=== PATIENT | male | born 1955 | race Two or more races ===

== ENCOUNTER 2017-02-15 15:05 | Observation (INO) | payer OTHER ==
[~2017-02-15] VITALS: Ht 172.7 cm; Wt 108.9 kg
[2017-02-15 15:31] LABS: BASO # 0.1 x10^3/uL (0.0-0.2); BASO % 1 % (0-3); EOS % 3 % (0-3); LYMPH # 2.9 x10^3/uL (1.0-4.8); LYMPH % 31 % (24-48); MEAN CORPUSCULAR HEMOGLOBIN 28 pg (25-35); MEAN CORPUSCULAR HGB CONC 34 g/dL (31-37); MEAN CORPUSCULAR VOLUME 83 fL (79-100); MONO % 7 % (0-9); NEUT % 57 % (31-73); PLATELET COUNT 253 x10^3/uL (140-400); RED BLOOD COUNT 5.67 x10^6/uL (4.30-5.70); RED CELL DISTRIBUTION WIDTH 13.2 % (11.5-14.5); WHITE BLOOD COUNT 9.5 x10^3/uL (4.0-11.0)
--- NOTE | 2017-02-15 15:34 | EKG ---
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
[2017-02-15] MEDS ORDERED: ASPIRIN CHEWABLE 81 MG TABLET. PO ONE (15:45)
--- NOTE | 2017-02-15 15:45 | RAD ---
Portable chest, 02/15/2017: History: Chest pain The heart size and pulmonary vascularity are normal. No pulmonary infiltrates are seen. There is no evidence of pleural fluid. IMPRESSION: No acute cardiopulmonary abnormality is detected.
[2017-02-15 15:52] LABS: CALCIUM 9.2 mg/dL (8.5-10.1); CREATININE 0.8 mg/dL (0.7-1.3); GFR 98.9
[2017-02-15 15:57] LABS: ALBUMIN 2.9 g/dL (3.4-5.0); DIRECT BILIRUBIN 0.2 mg/dL (0.0-0.2); TOTAL BILIRUBIN 0.6 mg/dL (0.2-1.0); TOTAL PROTEIN 7.5 g/dL (6.4-8.2)
--- NOTE | 2017-02-15 16:06 | PHYS DOC ---
Past Medical History Past Medical History: Diabetes-Type II, High Cholesterol Past Surgical History: No Surgical History Alcohol Use: None Drug Use: None Adult General Chief Complaint Chief Complaint: CHEST PAIN HPI HPI 61-year-old male with a history of type 2 diabetes and high cholesterol who presents emergency department today with chest pain. Started around noon. He endorses nausea and shortness of breath associated with it. It radiates to his left jaw. And left arm. He ascribes it is a sharp pain without exacerbating or alleviating factors. He is not taking anything for the pain prior to arrival. He denies unilateral leg swelling hemoptysis personal or family history of blood clotting disorders. He denies recent immobilization or long travel. Review of systems is negative for abdominal pain. Positive for nausea shortness of breath. Negative for diaphoresis. He denies diarrhea or bloody stools. All other review of systems is negative unless otherwise noted in history of present illness. Review of Systems Review of Systems SEE ABOVE. Current Medications Current Medications Current Medications Medications (Trade) Dose Ordered Sig/Porfirio Start Time Stop Time Status Last Admin Dose Admin Aspirin (Children'S Aspirin) 324 mg 1X ONCE 02/15/17 15:45 02/15/17 15:46 DC 02/15/17 15:45 324 MG Allergies Allergies Allergies Coded Allergies Type Severity Reaction Last Updated Verified No Known Drug Allergies 02/15/17 No Physical Exam Physical Exam Constitutional: Well developed, well nourished, no acute distress, non-toxic appearance. HENT: Normocephalic, atraumatic, bilateral external ears normal, oropharynx moist, no oral exudates, nose normal. [] Eyes: PERRLA, EOMI, conjunctiva normal, no discharge. [] Neck: Normal range of motion, no tenderness, supple, no stridor. Cardiovascular:Heart rate regular rhythm, no murmur [] Lungs & Thorax: Bilateral breath sounds clear to auscultation Abdomen: Bowel sounds normal, soft, no tenderness, no masses, no pulsatile masses. [] Skin: Warm, dry, no erythema, no rash. Back: No tenderness, no CVA tenderness. [] Extremities: No tenderness, no cyanosis, no clubbing, ROM intact, no edema. [] Neurologic: Alert and oriented X 3, normal motor function, normal sensory function, no focal deficits noted. Psychologic: Affect normal, judgement normal, mood normal. [] Current Patient Data Vital Signs Vital Signs Date Time Temp Pulse Resp B/P Pulse Ox O2 Delivery O2 Flow Rate FiO2 02/15/17 15:26 98.4 71 14 129/84 99 Room Air 98.4 Lab Values Laboratory Tests Test 02/15/17 15:16 02/15/17 15:20 Glucose (Fingerstick) 83mg/dL (70-99) White Blood Count 9.5x10^3/uL (4.0-11.0) Red Blood Count 5.67x10^6/uL (4.30-5.70) Hemoglobin 16.0g/dL (13.0-17.5) Hematocrit 47.0% (39.0-53.0) Mean Corpuscular Volume 83fL (79-100) Mean Corpuscular Hemoglobin 28pg (25-35) Mean Corpuscular Hemoglobin Concent 34g/dL (31-37) Red Cell Distribution Width 13.2% (11.5-14.5) Platelet Count 253x10^3/uL (140-400) Neutrophils (%) (Auto) 57% (31-73) Lymphocytes (%) (Auto) 31% (24-48) Monocytes (%) (Auto) 7% (0-9) Eosinophils (%) (Auto) 3% (0-3) Basophils (%) (Auto) 1% (0-3) Neutrophils # (Auto) 5.5x10^3uL (1.8-7.7) Lymphocytes # (Auto) 2.9x10^3/uL (1.0-4.8) Monocytes # (Auto) 0.7x10^3/uL (0.0-1.1) Eosinophils # (Auto) 0.3x10^3/uL (0.0-0.7) Basophils # (Auto) 0.1x10^3/uL (0.0-0.2) Sodium Level 139mmol/L (136-145) Potassium Level 4.0mmol/L (3.5-5.1) Chloride Level 102mmol/L (98-107) Carbon Dioxide Level 24mmol/L (21-32) Anion Gap 13 (6-14) Blood Urea Nitrogen 12mg/dL (8-26) Creatinine 0.8mg/dL (0.7-1.3) Estimated GFR (Cockcroft-Gault) 98.9 Glucose Level 87mg/dL (70-99) Calcium Level 9.2mg/dL (8.5-10.1) Total Bilirubin 0.6mg/dL (0.2-1.0) Direct Bilirubin 0.2mg/dL (0.0-0.2) Aspartate Amino Transferase (AST) 17U/L (15-37) Alanine Aminotransferase (ALT) 15U/L (16-63) L Alkaline Phosphatase 78U/L (46-116) Troponin I Quantitative < 0.017ng/mL (0.000-0.055) ED-Qpw-V-Type Natriuretic Peptide 18pg/mL (0-124) Total Protein 7.5g/dL (6.4-8.2) Albumin 2.9g/dL (3.4-5.0) L Lipase 137U/L (73-393) Laboratory Tests 02/15/17 15:20 Laboratory Tests 02/15/17 15:20 EKG EKG [] EKG shows sinus rhythm with a regular rate. [place] mildly leftward. ST segments are congruent. Not suggestive of ACS. Radiology/Procedures Radiology/Procedures [] Course & Med Decision Making Course & Med Decision Making Pertinent Labs and Imaging studies reviewed. (See chart for details) [] 61-year-old gentleman presenting to the emergency department with chest pain that started a few hours ago. Afebrile with normal heart rate here in the emergency department. Not hypoxic. He was given aspirin and nitroglycerin here in the emergency department. EKG without ischemic changes. Chest x-ray unremarkable. Blood work obtained. Troponin negative. Heart score calculated to be 4 for age 1-2 risk factors, suspicious history including radiation of the pain, associated symptoms. The patient was then admitted for chest pain rule out. Cardiology consult placed. Dragon Disclaimer Dragon Disclaimer This electronic medical record was generated, in whole or in part, using a voice recognition dictation system. Departure Departure Impression: Primary Impression: Chest pain Disposition: 09 ADMITTED INPATIENT Admitting Physician: Hali Velasquez Condition: STABLE Referrals: LINDA SIDHU (PCP) Problem Qualifiers Primary Impression: Chest pain Chest pain type: unspecified Qualified Code: R07.9 - Chest pain, unspecified ECTOR AMADOR MD Feb 15, 2017 16:06
[2017-02-15] MEDS ORDERED: ONDANSETRON PF 4 MG/2 ML VIAL. IV PRN ×2 (17:00→17:09)
[2017-02-15] MEDS ORDERED: MORPHINE SULFATE 2 MG/ML DISP.SYRIN. IV PRN (17:00)
[2017-02-15] MEDS ORDERED: DEXTROSE 50% 25 GM / 50ML DISP.SYRIN. IV PRN (17:15)
[2017-02-15] MEDS ORDERED: NITROGLYCERIN SUBLINGUAL 0.4 MG BOTTLE OF 25. SL PRN (17:15)
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
--- NOTE | 2017-02-15 17:20 | ACF ---
Admission Forms Criteria CARDIOLOGY GRG Clinical Indications for Admission to Inpatient Care ( Place 'X' for any and all applicable criteria): Hospital admission is needed for appropriate care of the patient because of ANY ONE of the following (1): [ ] I. Hemodynamic instability as indicated by ALL of the following (1)(2)(3) (4)(5) [ ]a) Vital signs or other findings not as expected for chronic patient condition or baseline [ ]b) Instability indicated by ANY ONE of the following: [ ]i) Hypotension [ ]ii) Symptomatic Tachycardia unresponsive to treatment ( e.g., analgesia, fluids, sedation as indicated) [ ]iii) Inadequate perfusion indicated by ANY ONE of the following: [ ] 1) Lactic acidosis (> 2 mmol/L) [ ] 2) New abnormal capillary refill (> 3 seconds) [ ] 3) Reduced urine output [ ] 4) New altered mental status [ ]iv) Orthostatic vital sign changes unresponsive to treatment (e.g., fluids) [ ]v) IV inotropic or vasopressor medication required to maintain adequate blood pressure or perfusion [ ] II. Severe heart failure as indicated by ANY ONE of the following(17)(18) [ ]a) Respiratory distress [ ]b) Hypotension [ ]c) Anasarca (refractory to outpatient therapy) [ ]d) Cardiac arrhythmias of immediate concern [ ]e) Myocardial ischemia [ ] III. Cardiac arrhythmias or findings of immediate concern indicated by ANY ONE of the following (19)(20): [ ] a) Heart rhythms that are inherently dangerous or unstable indicated by ANY ONE of the following (21)(22)(23): [ ] i) Resuscitated ventricular fibrillation or cardiac arrest [ ] ii) Ventricular escape rhythm [ ] iii) Sustained ventricular tachycardia (30 seconds or more of ventricular rhythm at greater than 100 beats per minute) [ ] iv) Nonsustained ventricular tachycardia and ANY ONE of the following: [ ] 1) Suspected cardiac ischemia as cause or consequence of ventricular tachycardia [ ] 2) In setting of acute myocarditis [ ] b) Unstable cardiac conduction defects indicated by ANY ONE of the following(23)(24)(25) [ ] i) Type II second-degree atrioventricular block [ ]ii) Third-degree atrioventricular block [ ]iii) New-onset left bundle branch block with suspected myocardial ischemia [ ]c) Any heart rhythm and ANY ONE of the following (21)(22)(26)(27) (28) [ ] i) Continuous long-term ECG monitoring needed (e.g., initiation of drug requiring monitoring for more than 24 hours) [ ] ii) Patient has automatic implanted cardioverter defibrillator that is repeatedly firing, malfunctioning, or in need of immediate adjustment of settings beyond the scope of ambulatory or observation care [ ]d) Heart rhythms of concern due to ANY ONE of the following: [ ] i) Hypotension [ ] ii) Respiratory distress [ ] iii) Association with other significant symptoms (e.g., bradycardia with syncope or ongoing dizziness, supraventricular tachycardia with chest pain (14)(15)(17) [ ] IV. Monitoring for cardiac contusion beyond the scope of observation care needed [A](30)(31)(32) [ ] V. Surgical or device complication (e.g., valve replacement complication , pacemaker dysfunction) (35)(41)(44)(45)(46) [ ] . Inpatient palliative care needed. [B](49) Also use Inpatient Palliative Care Criteria [ ] VII. Nonbacterial thrombotic (marantic) endocarditis (36)(43)(47)(48) [X] VIII. Cardiology condition, symptom, or finding for which emergency and observation care has failed or are not considered appropriate. [ ] IX. Acute valvular disease requiring inpatient as indicated by ANY ONE of the following (41) [ ]a) Acute valvular regurgitation (42) [ ]b) Noninfectious valvulitis (43) [ ]c) Obstructive valve thrombosis [ ]d) Paravalvular leak [ ]e) Other significant valvular disorder remaining after emergency or observation level of care (as appropriate) [ ]X. Pericardial disease requiring inpatient treatment as indicated by ANY ONE of the following (33)(34)(35)(36)(37) [ ]a) Suspected tamponade (38)(39)(40) [ ]b) Hemopericardium [ ]c) Other significant pericardial disorder remaining after emergency or observation level of care (as appropriate) [ ] XI. Cardiac ischemia beyond scope of emergency and observation care. [ ] XII. Hypertension requiring inpatient treatment as indicated by ANY ONE of the following (6)(7)(8) [ ]a) SBP greater than 220 mm Hg or DBP greater than 120 mmHg despite treatment [ ]b) SBP greater than 140 mm Hg or DBP greater than 100 mm Hg with evidence of acute end organ damage as indicated by ANY ONE of the following [ ] i) Encephalopathy [ ] ii) Acute renal failure as indicated by new onset of ANY ONE of the following (9)(10)(11)(12)(13) [ ]1) 3-fold rise in serum creatinine from baseline [ ]2) Serum creatinine greater than 4 mg/dL ( 354 micromoles/L) with acute rise greater than 0.5 mg/dL (44.2 micromoles/L) [ ]3) Reduction of more than 75% in estimated glomerular filtration rate from baseline [ ]4) Estimated glomerular filtration rate less than 35 mL/min/1.73m2 (0.59 mL/sec/1.73m2) in child up to 18 years of age [ ]5) Cessation of urine output indicated by ALL of the following [ ]A. Adequate volume status [ ]B. Inadequate urine output as indicated by ANY ONE of the following [ ]a. Urine output less than 0.3 mL/kg/hr for 24 hours [ ]b. Anuria (urine output less than 0.1 mL/kg/hr) for 12 hours [ ] iii) Aortic dissection [ ] iv) Myocardial Ischemia [ ] v) Left ventricular heart failure [ ]vi) Retinal Hemorrhage [ ]vii) Other significant finding [ ]c) Hypertension in child requiring inpatient treatment as indicated by ALL of the following(14)(15)(16) [ ] i) Outpatient treatment not effective, not available, or not appropriate [ ]ii) SBP or DBP greater than 95th percentile for age [ ]iii) Evidence of acute end organ damage as indicated by ANY ONE of the following [ ]1) Altered mental status [ ]2) Acute renal failure as indicated by new onset of ANY ONE of the following(9)(10)(11)(12)(13) [ ]A. 3-fold rise in serum creatinine from baseline [ ]B. Serum creatinine greater than 4 mg/dL (354 micromoles/L) with acute rise greater than 0.5 mg/dL (44.2 micromoles/L) [ ]C. Reduction of more than 75% in estimated glomerular filtration rate from baseline [ ]D. Estimated glomerular filtration rate less than 35 mL/min/1.73m2 (0.59 mL/sec/1.73m2) in child up to 18 years of age [ ]E. Cessation of urine output indicated by ALL of the following [ ]a. Adequate volume status [ ]b. Inadequate urine output as indicated by ANY ONE of the following [ ]i) Urine output less than 0.3 mL/kg/hr for 24 hours [ ]ii) Anuria ( urine output less than 0.1 mL/kg/hr) for 12 hours [ ]3) Severe headache [ ]4) Visual disturbance [ ]5) Retinal hemorrhage [ ]6) Other significant finding [ ]XIII. Complications of transplanted heart indicated by ANY ONE of the following(61): [ ]a) Acute graft rejection requiring inpatient management (eg, intravenous immunosuppression)(62)(63) [ ]b) Acute graft heart failure indicated by ANY ONE of the following(64): [ ]i) Hemodynamic instability [ ]ii) Cardiac arrhythmias of immediate concern [ ]iii) Pulmonary edema that is very severe (eg, mechanical ventilation needed, imminent or likely, need for 100% oxygen to keep oxygen saturation above 90%) [ ]iv) Pulmonary edema that is persistent as indicated by ALL of the following: [ ]1) New need for oxygen therapy to keep oxygen saturation above 90% (or increased FiO2 need from baseline) [ ]2) Has not improved sufficiently with emergency department or observation care IV diuretics or other heart failure treatments[E] [ ]v) Altered mental status that is severe or persistent [ ]vi) Increased creatinine (new on laboratory test) with reduction of more than 50% in estimated glomerular filtration rate from baseline [ ]vii) Progressively (ongoing) rising creatinine (known from past laboratory test) with reduction of more than 25% in estimated glomerular filtration rate from baseline [ ]viii) Acute renal failure [ ]ix) Acute peripheral ischemia (eg, examination shows pulseless, cool, mottled, or cyanotic extremity) [ ]x) Pulmonary artery catheter monitoring needed [ ]xi) Other sign or symptom of heart failure requiring inpatient treatment (ie, too severe or not responsive to outpatient and observation care treatment) [ ]c) Infection requiring inpatient management (eg, Hemodynamic instability, need for intravenous antimicrobial treatment)(66)(67)(68)(69)(70) [ ]d) Cardiac allograft vasculopathy requiring inpatient management ( eg evidence of cardiac ischemia)(71) [ ]e) Other complication of transplanted heart (eg, stroke, severe pulmonary hypertension, severe valvular dysfunction) requiring inpatient management(72) The original [facility] content created by [facility] has been revised. The portions of the content which have been revised are identified through the use of italic text or in bold, and [facility] has neither reviewed nor approved the modified material. All other unmodified content is copyright [facility]. Please see references footnoted in the original [facility] edition 2016 Admission Criteria Met?: Yes AVELINO RENE Feb 15, 2017 17:20
[2017-02-15 17:55] LABS: CHOLESTEROL/HDL RATIO 3.6
[2017-02-15 18:00] VITALS: BP 139/85
[2017-02-15] MEDS ORDERED: METF10002 PO (18:28)
[2017-02-15 19:00] VITALS: BP 119/80
[2017-02-15] MEDS ORDERED: ATOR20TA58 PO (20:11)
[2017-02-15] MEDS ORDERED: ATORVASTATIN CALCIUM 20 MG TABLET PO SCH (21:00)
[2017-02-15 22:52] VITALS: BP 123/61
[2017-02-16 03:00] VITALS: BP 109/70
[2017-02-16 06:09] LABS: BASO % 0 % (0-3); EOS % 4 % (0-3); HEMATOCRIT 45.4 % (39.0-53.0); HEMOGLOBIN 15.2 g/dL (13.0-17.5); LYMPH # 2.2 x10^3/uL (1.0-4.8); LYMPH % 26 % (24-48); MEAN CORPUSCULAR HEMOGLOBIN 28 pg (25-35); MEAN CORPUSCULAR HGB CONC 34 g/dL (31-37); MEAN CORPUSCULAR VOLUME 84 fL (79-100); MONO % 7 % (0-9); NEUT % 62 % (31-73); PLATELET COUNT 235 x10^3/uL (140-400); RED CELL DISTRIBUTION WIDTH 13.1 % (11.5-14.5); WHITE BLOOD COUNT 8.6 x10^3/uL (4.0-11.0)
[2017-02-16 06:26] LABS: CALCIUM 8.9 mg/dL (8.5-10.1); CREATININE 0.9 mg/dL (0.7-1.3); GFR 86.4; POTASSIUM 4.3 mmol/L (3.5-5.1)
[2017-02-16 07:00] VITALS: BP 114/68
[2017-02-16] MEDS: INSULIN ASPART 300 UNITS/3 ML INSULN.PEN SQ SCH ×3 (08:00→16:59)
[2017-02-16] MEDS: METFORMIN 1,000 MG TABLET PO SCH ×2 (08:00→16:58)
--- NOTE | 2017-02-16 09:17 | PDOC2 ---
CARDIAC CONSULT DATE OF CONSULT Date of Consult DATE: 02/16/17 TIME: 1050 REASON FOR CONSULT Reason for Consult: chest pain r/o REFERRING PHYSICIAN Referring Physician: Haylee SOURCE Source: Chart review, Patient HISTORY OF PRESENT ILLNESS HISTORY OF PRESENT ILLNESS This si a pleasant 61 yo male admitted for complains of chest pain. Rep[orts that yesterday while working on his computer , he started having retrosternal chest pain, sharp in consistency. This then radiated to his left jaw and arms and felt SOA and nausea. He has been feeling fatigue lately as well. Denies any vomiting and was not diaphoretic but he was anxious. These symptoms lasted about 3 hours before getting better. Denies any prior CAD, VTE, syncope. Denies any heartburn frequent use of NSAIDs. He uses ASA daily, and has treatment for HLP, and DM2. No prior cardiac workup. Denies any falls or any injury. PAST MEDICAL HISTORY Cardiovascular: Hyperlipidemia Pulmonary: No pertinent hx CENTRAL NERVOUS SYSTEM: Other (No pertinent history) GI: No pertinent hx Heme/Onc: No pertinent hx Hepatobiliary: No pertinent hx Psych: No pertinent hx Musculoskeletal: Osteoarthritis Rheumatologic: No pertinent hx Infectious disease: No pertinent hx ENT: No pertinent hx Renal/: No pertinent hx Endocrine: Diabetes (2) Dermatology: No pertinent hx PAST SURGICAL HISTORY Past Surgical History: Tonsillectomy FAMILY HISTORY Family History: Coronary Artery Disease (mother in her 60s) SOCIAL HISTORY Smoke: No ALCOHOL: none Drugs: None Lives: with Family CURRENT MEDICATIONS CURRENT MEDICATIONS Current Medications Medications (Trade) Dose Ordered Sig/Porfirio Route PRN Reason Start Time Stop Time Status Last Admin Dose Admin Aspirin (Children'S Aspirin) 324 mg 1X ONCE PO 02/15/17 15:45 02/15/17 15:46 DC 02/15/17 15:45 Atorvastatin Calcium (Lipitor) 20 mg HS PO 02/15/17 21:00 02/15/17 22:38 ALLERGIES ALLERGIES: Coded Allergies: No Known Drug Allergies (Unverified , 02/15/17) ROS Review of System 14 point ROS evaluated with pertinent positives noted per HPI PHYSICAL EXAM General: Alert, Oriented X3, Cooperative, No acute distress HEENT: Atraumatic, Mucous membr. moist/pink Lungs: Clear to auscultation, Normal air movement Heart: Regular rate, Normal S1, Normal S2, No murmurs Abdomen: Soft, No tenderness Extremities: No cyanosis, No edema Skin: No breakdown, No significant lesion Neuro: Normal speech, Sensation intact Psych/Mental Status: Mental status NL, Mood NL MUSCULOSKELETAL: Osteoarthritic changes both hands VITALS VITALS Vital Signs Date Time Temp Pulse Resp B/P Pulse Ox O2 Delivery O2 Flow Rate FiO2 02/16/17 07:00 97.8 62 16 114/68 95 Room Air 97.8 LABS Lab: Laboratory Tests Test 02/15/17 15:16 02/15/17 15:20 02/15/17 23:00 02/16/17 05:03 Glucose (Fingerstick) 83mg/dL (70-99) White Blood Count 9.5x10^3/uL (4.0-11.0) Red Blood Count 5.67x10^6/uL (4.30-5.70) Hemoglobin 16.0g/dL (13.0-17.5) Hematocrit 47.0% (39.0-53.0) Mean Corpuscular Volume 83fL (79-100) Mean Corpuscular Hemoglobin 28pg (25-35) Mean Corpuscular Hemoglobin Concent 34g/dL (31-37) Red Cell Distribution Width 13.2% (11.5-14.5) Platelet Count 253x10^3/uL (140-400) Neutrophils (%) (Auto) 57% (31-73) Lymphocytes (%) (Auto) 31% (24-48) Monocytes (%) (Auto) 7% (0-9) Eosinophils (%) (Auto) 3% (0-3) Basophils (%) (Auto) 1% (0-3) Neutrophils # (Auto) 5.5x10^3uL (1.8-7.7) Lymphocytes # (Auto) 2.9x10^3/uL (1.0-4.8) Monocytes # (Auto) 0.7x10^3/uL (0.0-1.1) Eosinophils # (Auto) 0.3x10^3/uL (0.0-0.7) Basophils # (Auto) 0.1x10^3/uL (0.0-0.2) Sodium Level 139mmol/L (136-145) 141mmol/L (136-145) Potassium Level 4.0mmol/L (3.5-5.1) 4.3mmol/L (3.5-5.1) Chloride Level 102mmol/L (98-107) 105mmol/L (98-107) Carbon Dioxide Level 24mmol/L (21-32) 27mmol/L (21-32) Anion Gap 13 (6-14) 9 (6-14) Blood Urea Nitrogen 12mg/dL (8-26) 13mg/dL (8-26) Creatinine 0.8mg/dL (0.7-1.3) 0.9mg/dL (0.7-1.3) Estimated GFR (Cockcroft-Gault) 98.9 86.4 Glucose Level 87mg/dL (70-99) 119mg/dL (70-99) Hemoglobin A1c 6.2% (4.8-5.6) Calcium Level 9.2mg/dL (8.5-10.1) 8.9mg/dL (8.5-10.1) Total Bilirubin 0.6mg/dL (0.2-1.0) Direct Bilirubin 0.2mg/dL (0.0-0.2) Aspartate Amino Transf (AST/SGOT) 17U/L (15-37) Alanine Aminotransferase (ALT/SGPT) 15U/L (16-63) Alkaline Phosphatase 78U/L (46-116) Troponin I Quantitative < 0.017ng/mL (0.000-0.055) < 0.017ng/mL (0.000-0.055) < 0.017ng/mL (0.000-0.055) UG-Szj-R-Type Natriuretic Peptide 18pg/mL (0-124) Total Protein 7.5g/dL (6.4-8.2) Albumin 2.9g/dL (3.4-5.0) Triglycerides Level 105mg/dL (0-150) Cholesterol Level 122mg/dL (0-200) LDL Cholesterol, Calculated 67mg/dL (0-100) VLDL Cholesterol, Calculated 21mg/dL (0-40) Non-HDL Cholesterol Calculated 88mg/dL (0-129) HDL Cholesterol 34mg/dL (40-60) Cholesterol/HDL Ratio 3.6 Lipase 137U/L (73-393) Test 02/16/17 05:08 02/16/17 07:29 White Blood Count 8.6x10^3/uL (4.0-11.0) Red Blood Count 5.40x10^6/uL (4.30-5.70) Hemoglobin 15.2g/dL (13.0-17.5) Hematocrit 45.4% (39.0-53.0) Mean Corpuscular Volume 84fL (79-100) Mean Corpuscular Hemoglobin 28pg (25-35) Mean Corpuscular Hemoglobin Concent 34g/dL (31-37) Red Cell Distribution Width 13.1% (11.5-14.5) Platelet Count 235x10^3/uL (140-400) Neutrophils (%) (Auto) 62% (31-73) Lymphocytes (%) (Auto) 26% (24-48) Monocytes (%) (Auto) 7% (0-9) Eosinophils (%) (Auto) 4% (0-3) Basophils (%) (Auto) 0% (0-3) Neutrophils # (Auto) 5.3x10^3uL (1.8-7.7) Lymphocytes # (Auto) 2.2x10^3/uL (1.0-4.8) Monocytes # (Auto) 0.6x10^3/uL (0.0-1.1) Eosinophils # (Auto) 0.3x10^3/uL (0.0-0.7) Basophils # (Auto) 0.0x10^3/uL (0.0-0.2) Glucose (Fingerstick) 125mg/dL (70-99) ASSESSMENT/PLAN ASSESSMENT/PLAN 1. Chest pain with typical features: troponin series normal. EKG SR with S1Q3T3 , BP controlled. DDIMER normal 2. DM2/HLP: controlled 3. Obesity: BMI 36 Recommendations 1. TTE and MPI today. 2. Repeat EKG. 3. TSH 4. Lifestyle modification 5. Continue with home ECASA 81 mg Problems: JUAN ALBERTO COX APRN Feb 16, 2017 09:16
[2017-02-16] MEDS ORDERED: ASPIRIN ENTERIC COATED 81 MG TABLET.DR. PO SCH (09:30)
--- NOTE | 2017-02-16 10:56 | EKG ---
[facility] [address] [place] [address] Test Date: 2017-02-16 Test Time: 10:53:46 Pat Name: DEONNA DEWEY Department: Room: [employer] Gender: M Digital Forensic Examiner: SÁNCHEZ : 1955 Requested By: JUAN ALBERTO COX Order Number: [id number] Reading MD: Porfirio Dao Measurements Intervals [place] Rate: 64 P: 0 MD: 174 QRS: -47 QRSD: 88 T: 6 QT: 406 QTc: 423 Interpretive Statements SINUS RHYTHM RBBB POSSIBLE PRIOR INFERIOR INFARCT Electronically Signed On 02-20-2017 15:28:33 CDT by Porfirio Dao
[2017-02-16 11:00] VITALS: BP 113/73
--- NOTE | 2017-02-16 11:23 | CARD ---
APPROVED REPORT EXAM: Two-dimensional and M-mode echocardiogram with Doppler and color Doppler. Other Information Quality : FairHR: 60bpm Rhythm : NSR INDICATION Chest Pain RISK FACTORS Obesity Diabetes 2D DIMENSIONS RVDd3.4 (2.9-3.5cm)Left Atrium(2D)3.4 (1.6-4.0cm) IVSd1.2 (0.7-1.1cm)Aortic Root(2D)3.2 (2.0-3.7cm) LVDd4.8 (3.9-5.9cm)LVOT Diameter2.4 (1.8-2.4cm) PWd0.0 (0.7-1.1cm)LVDs3.4 (2.5-4.0cm) FS (%) 28.3 %SV58.4 ml LVEF(%)54.5 (>50%) Aortic Valve AoV Peak Ten.118.4cm/sAoV VTI25.5cm AO Peak GR.5.6mmHgLVOT Peak Ten.96.9cm/s AO Mean GR.3mmHgAVA (VMAX)3.81cm2 Mitral Valve MV E Dsfkirqq92.5cm/sMV E Peak Gr.2mmHg MV DECEL [id number] A Gzrdzjcf87.8cm/s MV E Mean Gr.1mmHgE/A Ratio0.9 MV A [id number] Pulmonary Valve PV Peak Byfwcbbq01.4cm/s Tricuspid Valve TR P. Pnkibqdl592nk/sTR Peak Gr.22mmHg Pulmonary Vein S1 Iznxuqlv83.1cm/sD2 Acmobfcm85.0cm/s PVa [id number] LEFT VENTRICLE The left ventricle is normal size. There is mild concentric left ventricular hypertrophy. The left ve ntricular systolic function is normal and the ejection fraction is within normal range. The Ejection Fraction is 55-60%. There is normal LV segmental wall motion. Transmitral Doppler flow pattern is Gra de I-abnormal relaxation pattern. RIGHT VENTRICLE The right ventricle is normal size. There is normal right ventricular wall thickness. The right ventr icular systolic function is normal. ATRIA The left atrium size is normal. The right atrium size is normal. The interatrial septum is intact wit h no evidence for an atrial septal defect or patent foramen ovale as noted on 2-D or Doppler imaging. AORTIC VALVE The aortic valve is mildly thickened. The aortic valve is trileaflet. Doppler and Color Flow revealed no significant aortic regurgitation. There is no significant aortic valvular stenosis. MITRAL VALVE The mitral valve leaflets are thickened. There is no evidence of mitral valve prolapse. There is no m itral valve stenosis. Doppler and Color Flow revealed trace mitral valve regurgitation. TRICUSPID VALVE Doppler and Color Flow revealed trace tricuspid regurgitation. The pulmonary artery systolic pressure is estimated at 25 mmHg. PULMONIC VALVE The pulmonary valve is normal in structure and function. Doppler and Color Flow revealed no pulmonic valvular regurgitation. There is no pulmonic valvular stenosis. GREAT VESSELS The aortic root is normal in size. The ascending aorta is normal in size. The pulmonary artery is nor mal. The IVC is normal in size and collapses >50% with inspiration. PERICARDIAL EFFUSION There is no evidence of significant pericardial effusion. Critical Notification Critical Value: No <Conclusion> The left ventricle is normal size. The left ventricular systolic function is normal and the ejection fraction is within normal range. The Ejection Fraction is 55-60%. There is mild concentric left ventricular hypertrophy. There is no significant aortic valvular stenosis. Doppler and Color Flow revealed no significant aortic regurgitation. Doppler and Color Flow revealed trace mitral valve regurgitation. Doppler and Color Flow revealed trace tricuspid regurgitation. The pulmonary artery systolic pressure is estimated at 25 mmHg.
[2017-02-16] MEDS ORDERED: REGADENOSON 0.4 MG/5 ML DISP.SYRIN. IV ONE (13:15)
[2017-02-16] MEDS ORDERED: LISI2.5T PO (15:21)
--- NOTE | 2017-02-16 15:33 | RAD ---
APPROVED REPORT Test Type: Pharmacological Stress Nurse/Tech: Anabelle Monteiro R.N. Test Indications: c/p Cardiac History: none Medications: See Electronic Medical Record Medical History: See Electronic Medical Record Resting ECG: SR Resting Heart Rate: 67 bpm Resting Blood Pressure: 114/73mmHg Pretest Chest Pain: No chest pain Nurse/Tech Notes S1S2, lungs CTA Consent: The procedure was explained to the patient in lay terms. Informed consent was witnessed. Tru eout was entered into adjust. History and Stress Test performed by MICHAELA Mcclure Pharm. Details Pharmacologic stress testing was performed using 0.4mg per 5ml of regadenoson given intravenously ove r 7-10 seconds. Stress Symptoms dyspnea, slight queasy, both of which resolved by the end of recovery period. h/a which decreased bu t still present at the end of recovery period POST EXERCISE Reason for Termination: Infusion complete Max HR: 121 bpm Max Blood Pressure: 123/59mmHg Blood Pressure response to exercise: Normal blood pressure response during stress. Heart Rate response to exercise: wnl Chest Pain: No. Arrhythmia: No. ST Change: No. INTERPRETATION Stress EKG Conclusion: The resting EKG showed a sinus rhythm, left anterior fascicular block and nons pecific ST segment changes. The stress EKG showed no significant changes from baseline. No EKG evidence of stress-induced ischemia. Imaging Protocol IMAGE PROTOCOL: Rest Tc-99m/stress Tc-99m 1 day Rest: Stress: Viability: Radiopharm.Tc99m ZqivpmmdcQh12i Sestamibi Dose11.3mCi 36mCi Img Date 02/16/2017 02/16/2017 Inj-Img Eins16zdp. 30min. Rest Admin Site:IV - Right HandAdministrator:MICHAELA Mcclure Stress Admin Site: IV - Right HandAdministrator: MICHAELA Mcclure STRESS DATA End Diast. Vol.89.0mlAv. Heart Rate73.0bpm End Syst. Vol.23.0mlCO Index BSA0.0L/min Myocardial Bkkw931.0gEject. Ihyqegta93.0% Stress Rates Pk. Fill Rate3.05EDV/secLVtime Pk. Fill 123.31msec Pk. Empty Rate4.41ESV/secLVtime Pk. Eeayg573.76msec 1/3 Pk. Fill1.91EDV/sec Stress Scores Regional WT0.00Summed WT0.00 Regional WM0.00Summed WM0.00 LV Perfusion The stress scans showed mild thinning in the inferior lateral wall. The rest scans showed mild thinning in the inferior lateral wall. Nuclear stress imaging shows no significant reversible ischemia. Nuclear stress imaging shows mild fixed thinning in the inferior lateral wall most consistent with a technical artifact. LV wall function in this area is normal. Wall Motion Left ventricular systolic function is normal. There are no regional wall motion abnormalities. Ejecti on fraction is greater than 70%. LV Perf. Quant 17 Seg. SSS4.00 17 Seg. SRS5.00 17 Seg. SDS0.00 Stress Defect Extent (% LAD)1.90Rest Defect Extent (% LAD)0.00Rev. Defect Extent (% LAD)0.00 Stress Defect Extent (% LCX) 46.30Rest Defect Extent (% LCX)25.00Rev. Defect Extent (% LCX)11.30 Stress Defect Extent (% RCA)0.00Rest Defect Extent (% RCA)0.00Rev. Defect Extent (% RCA)0.00 Stress Defect Extent (% DONELL)13.70Rest Defect Extent (% DONELL)7.40Rev. Defect Extent (% DONELL)3.70 Conclusion 1. No EKG evidence of stress-induced ischemia. 2. Nuclear imaging shows no reversible ischemia. 3. Nuclear imaging shows mild fixed thinning in the inferior lateral region most consistent with a te chnical artifact. 4. Left ventricular systolic function is normal. There are no regional wall motion abnormalities. Eje ction fraction is greater than 70%. 5. Low to moderately low risk nuclear stress test.
[2017-02-16] MEDS ORDERED: ASPI81TA9 PO ×2 (16:34→16:50)
== END 2017-02-16 18:00 | disposition home or self-care (01) ==
LOC: ER 15:05 → 5 NORTH 17:00
PROVIDERS: ADMIT Internal Medicine; ATTEND Internal Medicine
DX: R07.89 Other chest pain (principal); E11.9 Type 2 diabetes mellitus without complications; I10 Essential (primary) hypertension; E78.5 Hyperlipidemia, unspecified; M19.90 Unspecified osteoarthritis, unspecified site; E66.9 Obesity, unspecified; E78.00 Pure hypercholesterolemia, unspecified; Z79.899 Other long term (current) drug therapy; Z79.84 Long term (current) use of oral hypoglycemic drugs; Z68.36 Body mass index [BMI] 36.0-36.9, adult; Z82.49 Family history of ischemic heart disease and other diseases of the circulatory system
CPT/HCPCS: 36415; 71010; 78452; 80048; 80061; 80076; 82947; 83036; 83690; 83880; 84484; 85027; 85379; 93005; 93017; 93306; 99285; A9500; G0378; J2785; 96374; 96375; 96376; G0379

== ENCOUNTER → 2017-11-15 | Outpatient (CLI) | payer OTHER | END | disposition home or self-care (01) | LOC: KCIC 10:41 | DX: E11.9 Type 2 diabetes mellitus without complications (principal); R63.4 Abnormal weight loss | CPT/HCPCS: 71046 ==

== ENCOUNTER 2020-03-25 17:02 | Inpatient (IN) | payer OTHER ==
[~2020-03-25] VITALS: Ht 172.7 cm; Wt 99.1 kg
[~2020-03-25 17:02] MED LIST: ASPI-612 PO; ATOR20TA58 PO; LISI2.5T PO; METF10007 PO
[2020-03-25 17:28] LABS: BASO % 1 % (0-3); EOS # 0.4 x10^3/uL (0.0-0.7); EOS % 5 % (0-3); HEMATOCRIT 44.5 % (39.0-53.0); HEMOGLOBIN 15.3 g/dL (13.0-17.5); LYMPH # 2.4 x10^3/uL (1.0-4.8); LYMPH % 32 % (24-48); MEAN CORPUSCULAR HEMOGLOBIN 29 pg (25-35); MEAN CORPUSCULAR HGB CONC 34 g/dL (31-37); MEAN CORPUSCULAR VOLUME 84 fL (79-100); MONO # 0.6 x10^3/uL (0.0-1.1); MONO % 8 % (0-9); NEUT # 4.2 x10^3/uL (1.8-7.7); NEUT % 55 % (31-73); PLATELET COUNT 272 x10^3/uL (140-400); RED BLOOD COUNT 5.33 x10^6/uL (4.30-5.70); WHITE BLOOD COUNT 7.6 x10^3/uL (4.0-11.0)
[2020-03-25 17:36] LABS: PROTHROMBIN TIME PATIENT 12.4 SEC (11.7-14.0)
[2020-03-25 17:40] LABS: CALCIUM 8.9 mg/dL (8.5-10.1); GFR 75.7; POTASSIUM 4.1 mmol/L (3.5-5.1)
[2020-03-25 17:45] LABS: ALBUMIN 3.8 g/dL (3.4-5.0); ALBUMIN/GLOBULIN RATIO 1.2 (1.0-1.7); TOTAL BILIRUBIN 0.3 mg/dL (0.2-1.0)
--- NOTE | 2020-03-25 17:52 | RAD ---
CHEST AP ONLY 03/25/2020 5:22 PM INDICATION: Chest pain COMPARISON: 11/15/2017 TECHNIQUE: Portable frontal view of the chest is provided. FINDINGS: The cardiomediastinal silhouette is within normal limits. Lungs are clear. There are no significant pleural effusions. There is no pulmonary vascular congestion. No pneumothorax. No suspicious osseous abnormality. IMPRESSION: There is no acute cardiopulmonary process. Electronically signed by: Sobia Bear MD (03/25/2020 5:49 PM) [facility]ER[facility] WAY CAMPUSGABRIELA
--- NOTE | 2020-03-25 17:59 | PHYS DOC ---
Past Medical History Past Medical History: Diabetes-Type II, High Cholesterol Past Surgical History: Other Additional Past Surgical Histo: R leg surgery r/t accident Smoking Status: Never Smoker Alcohol Use: None Drug Use: None Adult General Chief Complaint Chief Complaint: CHEST PAIN [facility] HPI Patient is a 64 year old male with history of dyslipidemia, diabetes who presents with left-sided chest pain intermittent since yesterday. Pain is described as sharp and continuous. No medications or therapies prior to ED arrival. Pain waxes and wanes and is currently rated as mild. Is not worse with position change movement or deep breathing. Denies nausea, shortness of breath, cough. No fever chills, sweats. No abdominal pain. No leg pain or swelling. No fever, cough, sore throat, abdominal pain. Denies leg pain or swelling. No history of DVT PE. Patient is a non-smoker. [] Review of Systems Review of Systems Review of systems as per HPI. All other review of symptoms are negative. All other systems were reviewed and found to be within normal limits, except as documented in this note. Current Medications Current Medications Current Medications Medications (Trade) Dose Ordered Sig/Porfirio Start Time Stop Time Status Last Admin Dose Admin Aspirin (Aspirin Chewable) 324 mg 1X ONCE 03/25/20 18:00 03/25/20 18:01 UNV Nitroglycerin (Nitrostat) 0.4 mg PRN Q5MIN PRN 03/25/20 18:00 UNV Allergies Allergies Allergies Coded Allergies Type Severity Reaction Last Updated Verified No Known Drug Allergies 02/15/17 No Physical Exam Physical Exam Constitutional: Well developed, well nourished, no acute distress, non-toxic appearance. [] HENT: Normocephalic, atraumatic, bilateral external ears normal, oropharynx moist, no oral exudates, nose normal. [] Eyes: PERRLA, EOMI, conjunctiva normal, no discharge. [] Neck: Normal range of motion, no tenderness, supple, no stridor. [] Cardiovascular:Heart rate regular rhythm, no murmur [] Lungs & Thorax: Bilateral breath sounds clear to auscultation [] Abdomen: Bowel sounds normal, soft, no tenderness, no masses, no pulsatile masses. [] Skin: Warm, dry, no erythema, no rash. [] Back: No tenderness. [] Extremities: No tenderness, no cyanosis, no clubbing, ROM intact, no edema. [] Neurologic: Alert and oriented X 3, normal motor function, normal sensory function, no focal deficits noted. [] Psychologic: Affect normal, judgement normal, mood normal. [] Current Patient Data Vital Signs Vital Signs Date Time Temp Pulse Resp B/P (MAP) Pulse Ox O2 Delivery O2 Flow Rate FiO2 03/25/20 17:10 98.7 6 16 135/73 (93) 98 Room Air 98.7 Lab Values Laboratory Tests Test 03/25/20 17:10 White Blood Count 7.6 x10^3/uL (4.0-11.0) Red Blood Count 5.33 x10^6/uL (4.30-5.70) Hemoglobin 15.3 g/dL (13.0-17.5) Hematocrit 44.5 % (39.0-53.0) Mean Corpuscular Volume 84 fL (79-100) Mean Corpuscular Hemoglobin 29 pg (25-35) Mean Corpuscular Hemoglobin Concent 34 g/dL (31-37) Red Cell Distribution Width 14.0 % (11.5-14.5) Platelet Count 272 x10^3/uL (140-400) Neutrophils (%) (Auto) 55 % (31-73) Lymphocytes (%) (Auto) 32 % (24-48) Monocytes (%) (Auto) 8 % (0-9) Eosinophils (%) (Auto) 5 % (0-3) H Basophils (%) (Auto) 1 % (0-3) Neutrophils # (Auto) 4.2 x10^3/uL (1.8-7.7) Lymphocytes # (Auto) 2.4 x10^3/uL (1.0-4.8) Monocytes # (Auto) 0.6 x10^3/uL (0.0-1.1) Eosinophils # (Auto) 0.4 x10^3/uL (0.0-0.7) Basophils # (Auto) 0.0 x10^3/uL (0.0-0.2) Prothrombin Time 12.4 SEC (11.7-14.0) Prothrombin Time INR 1.0 (0.8-1.1) Activated Partial Thromboplast Time 27 SEC (24-38) Sodium Level 140 mmol/L (136-145) Potassium Level 4.1 mmol/L (3.5-5.1) Chloride Level 103 mmol/L (98-107) Carbon Dioxide Level 32 mmol/L (21-32) Anion Gap 5 (6-14) L Blood Urea Nitrogen 12 mg/dL (8-26) Creatinine 1.0 mg/dL (0.7-1.3) Estimated GFR (Cockcroft-Gault) 75.7 BUN/Creatinine Ratio 12 (6-20) Glucose Level 135 mg/dL (70-99) H Calcium Level 8.9 mg/dL (8.5-10.1) Total Bilirubin 0.3 mg/dL (0.2-1.0) Aspartate Amino Transferase (AST) 11 U/L (15-37) L Alanine Aminotransferase (ALT) 15 U/L (16-63) L Alkaline Phosphatase 82 U/L (46-116) Total Protein 7.0 g/dL (6.4-8.2) Albumin 3.8 g/dL (3.4-5.0) Albumin/Globulin Ratio 1.2 (1.0-1.7) Laboratory Tests 03/25/20 17:10 Laboratory Tests 03/25/20 17:10 EKG EKG [EKG: Reviewed, no acute ST-T wave changes.] Radiology/Procedures Radiology/Procedures [Chest x-ray: Atelectasis left lingula.] Course & Med Decision Making Course & Med Decision Making Pertinent Labs and Imaging studies reviewed. (See chart for details) [EKG, chest x-ray initial labs reviewed. Atypical chest pain. Anticipate hospital admission for cardiac rule out.] Dragon Disclaimer Dragon Disclaimer This electronic medical record was generated, in whole or in part, using a voice recognition dictation system. Departure Departure Impression: Primary Impression: Chest pain Disposition: ADMITTED INPATIENT Condition: STABLE Referrals: LINDA SIDHU (PCP) DOREEN BOX DO March 25, 2020 17:59
[2020-03-25] MEDS ORDERED: NITROGLYCERIN SUBLINGUAL 0.4 MG BOTTLE OF 25. SL PRN (18:00)
[2020-03-25] MEDS ORDERED: ASPIRIN CHEWABLE 81 MG TABLET. PO ONE (18:00)
--- NOTE | 2020-03-25 20:21 | HP ---
ADMIT DATE: 03/25/2020 CHIEF COMPLAINT: Chest pain. HISTORY OF PRESENT ILLNESS: The patient is a pleasant 64-year-old male who presented with chest pain. I have discussed the case with Emergency Room physician. We are going to admit the patient and consult Cardiology. PAST MEDICAL HISTORY: Diabetes, hyperlipidemia, right leg surgery after an accident. ALLERGIES: None. FAMILY HISTORY: Coronary artery disease. 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 He does not drink, smoke or take drugs. MEDICATIONS: Reviewed, please refer to the MRAD. REVIEW OF SYSTEMS: GENERAL: No history of weight change, weakness or fevers. SKIN: No bruising, hair changes or rashes. EYES: No blurred, double or loss of vision. NOSE AND THROAT: No history of nosebleeds, hoarseness or sore throat. CARDIAC: Frequent chest pain. LUNGS: Denies cough, hemoptysis, wheezing or shortness of breath. GASTROINTESTINAL: Denies changes in appetite, nausea, vomiting, diarrhea or constipation. GENITOURINARY: No history of frequency, urgency, hesitancy or nocturia. NEUROLOGIC: Denies history of numbness, tingling, tremor or weakness. PSYCHIATRIC: No history of panic, anxiety or depression. ENDOCRINE: No history of heat or cold intolerance, polyuria or polydipsia. EXTREMITIES: Denies muscle weakness, joint pain, pain on walking or stiffness. PHYSICAL EXAMINATION: VITALS: Within normal limits and are stable. GENERAL: No apparent distress. Alert and oriented. HEENT: Normal cephalic atraumatic, external auditory canals are patent EYES: Extraocular muscles are intact, pupils are equally round and reactive to light and accommodation MUSKULOSKELETAL: Well developed, well nourished, good range of motion ENDOCRINE: No thyromegaly was palpated LYMPHATICS: No cervical chain or axillary nodes were noted HEMATOPOIETIC: No bruising NECK: Supple, no JVD, no thyromegaly was noted. LUNGS: Clear to auscultation in all lung thompson without rhonchi or wheezing. HEART: RRR, S1, S2 present. Peripheral pulses intact, no obvious murmurs were noted. ABDOMEN: Soft, nontender. Positive bowel sounds no organomegaly, normal bowel sounds. EXTREMITIES: Without any cyanosis, clubbing, or edema. Pedal pulses intact, Homans sign is negative. NEUROLOGIC: Normal speech, normal tone. A & O x3, moves all extremities, no obvious focal deficits. PSYCHIATRIC: Normal affect, normal mood. Stable. SKIN: No ulcerations or rashes, good skin turgor, no jaundice. VASCULAR: Good capillary refill, neurovascular bundle appears to be intact. LABORATORY DATA: Troponin is 0. Hematology is normal. ASSESSMENT AND PLAN: Chest pain, rule out coronary artery disease. The patient has been admitted. We will check serial enzymes, serial EKGs. Consult Cardiology, cardiac monitoring, daily aspirin. Deep venous thrombosis prophylaxis. Full code. Home medications. GRUPOL Lucio SANCHEZ DO DR: AGAPITO/shae JOB#: [id number] / [id number]
[2020-03-25 23:00] VITALS: BP 132/84
[2020-03-26 03:00] VITALS: BP 113/72
[2020-03-26 04:17] LABS: CALCIUM 8.4 mg/dL (8.5-10.1); GFR 75.7; POTASSIUM 3.8 mmol/L (3.5-5.1)
[2020-03-26 04:22] LABS: BASO # 0.1 x10^3/uL (0.0-0.2); BASO % 1 % (0-3); EOS # 0.3 x10^3/uL (0.0-0.7); EOS % 3 % (0-3); HEMATOCRIT 42.3 % (39.0-53.0); HEMOGLOBIN 14.3 g/dL (13.0-17.5); LYMPH # 2.6 x10^3/uL (1.0-4.8); LYMPH % 28 % (24-48); MEAN CORPUSCULAR HEMOGLOBIN 28 pg (25-35); MEAN CORPUSCULAR HGB CONC 34 g/dL (31-37); MEAN CORPUSCULAR VOLUME 84 fL (79-100); MONO # 0.6 x10^3/uL (0.0-1.1); MONO % 6 % (0-9); NEUT # 5.7 x10^3/uL (1.8-7.7); NEUT % 61 % (31-73); PLATELET COUNT 243 x10^3/uL (140-400); RED BLOOD COUNT 5.05 x10^6/uL (4.30-5.70); RED CELL DISTRIBUTION WIDTH 13.7 % (11.5-14.5); WHITE BLOOD COUNT 9.2 x10^3/uL (4.0-11.0)
--- NOTE | 2020-03-26 06:36 | EKG ---
[facility] [address] [place] [address] Test Date: 2020-03-25 Test Time: 17:12:25 Pat Name: DEONNA MILES Department: Room: [facility] Gender: M Hammer Smith: : 1955 Requested By: DOREEN BOX Order Number: [id number] Reading MD: Porfirio Dao MD Measurements Intervals [place] Rate: 64 P: 34 NM: 174 QRS: -61 QRSD: 88 T: 42 QT: 392 QTc: 408 Interpretive Statements SINUS RHYTHM LEFT ANTERIOR FASCICULAR BLOCK ABNORMAL ECG Electronically Signed On 03-26-2020 17:37:46 CDT by Porfirio Dao MD
[2020-03-26] MEDS ORDERED: ASPI-630 PO (07:24)
[2020-03-26 07:56] VITALS: BP 121/75
--- NOTE | 2020-03-26 09:24 | PDOC ---
PROGRESS NOTES Chief Complaint Chief Complaint A/P: Chest pain - atypical features, high risk for CAD, however DM2 - sliding scale, A1c HLD HTN 02/16/2017 Lexiscan - 1. No EKG evidence of stress-induced ischemia. 2. Nuclear imaging shows no reversible ischemia. 3. Nuclear imaging shows mild fixed thinning in the inferior lateral region most consistent with a technical artifact. 4. Left ventricular systolic function is normal. There are no regional wall motion abnormalities. Ejection fraction is greater than 70%. 5. Low to moderately low risk nuclear stress test. History of Present Illness History of Present Illness Mr Best is a 64 yo M w/ PMHx DM2, HLD who presented with chest pain. Negative CXR, negative troponin x2. EKG with left anterior fascicular block. Compared to his 2017 EKG this appears unchanged to me. His pain improved with GI cocktail. Today still has a little bit of discomfort not reproducible food and breathing does not change it. Vitals Vitals Vital Signs Date Time Temp Pulse Resp B/P (MAP) Pulse Ox O2 Delivery O2 Flow Rate FiO2 03/26/20 07:56 97.9 59 18 121/75 (90) 98 Room Air 97.9 Physical Exam General: Alert, Oriented X3, Cooperative Heart: Regular rate, Normal S1, Normal S2 Lungs: Clear Abdomen: Normal bowel sounds, Soft Extremities: No clubbing, No cyanosis Skin: No rashes, No breakdown Labs LABS Laboratory Tests Test 03/25/20 17:10 03/26/20 00:33 03/26/20 07:39 White Blood Count 7.6 x10^3/uL (4.0-11.0) 9.2 x10^3/uL (4.0-11.0) Red Blood Count 5.33 x10^6/uL (4.30-5.70) 5.05 x10^6/uL (4.30-5.70) Hemoglobin 15.3 g/dL (13.0-17.5) 14.3 g/dL (13.0-17.5) Hematocrit 44.5 % (39.0-53.0) 42.3 % (39.0-53.0) Mean Corpuscular Volume 84 fL (79-100) 84 fL (79-100) Mean Corpuscular Hemoglobin 29 pg (25-35) 28 pg (25-35) Mean Corpuscular Hemoglobin Concent 34 g/dL (31-37) 34 g/dL (31-37) Red Cell Distribution Width 14.0 % (11.5-14.5) 13.7 % (11.5-14.5) Platelet Count 272 x10^3/uL (140-400) 243 x10^3/uL (140-400) Neutrophils (%) (Auto) 55 % (31-73) 61 % (31-73) Lymphocytes (%) (Auto) 32 % (24-48) 28 % (24-48) Monocytes (%) (Auto) 8 % (0-9) 6 % (0-9) Eosinophils (%) (Auto) 5 % (0-3) 3 % (0-3) Basophils (%) (Auto) 1 % (0-3) 1 % (0-3) Neutrophils # (Auto) 4.2 x10^3/uL (1.8-7.7) 5.7 x10^3/uL (1.8-7.7) Lymphocytes # (Auto) 2.4 x10^3/uL (1.0-4.8) 2.6 x10^3/uL (1.0-4.8) Monocytes # (Auto) 0.6 x10^3/uL (0.0-1.1) 0.6 x10^3/uL (0.0-1.1) Eosinophils # (Auto) 0.4 x10^3/uL (0.0-0.7) 0.3 x10^3/uL (0.0-0.7) Basophils # (Auto) 0.0 x10^3/uL (0.0-0.2) 0.1 x10^3/uL (0.0-0.2) Prothrombin Time 12.4 SEC (11.7-14.0) Prothromb Time International Ratio 1.0 (0.8-1.1) Activated Partial Thromboplast Time 27 SEC (24-38) D-Dimer (Diane) < 0.27 ug/mlFEU Sodium Level 140 mmol/L (136-145) 140 mmol/L (136-145) Potassium Level 4.1 mmol/L (3.5-5.1) 3.8 mmol/L (3.5-5.1) Chloride Level 103 mmol/L (98-107) 104 mmol/L (98-107) Carbon Dioxide Level 32 mmol/L (21-32) 25 mmol/L (21-32) Anion Gap 5 (6-14) 11 (6-14) Blood Urea Nitrogen 12 mg/dL (8-26) 16 mg/dL (8-26) Creatinine 1.0 mg/dL (0.7-1.3) 1.0 mg/dL (0.7-1.3) Estimated GFR (Cockcroft-Gault) 75.7 75.7 BUN/Creatinine Ratio 12 (6-20) Glucose Level 135 mg/dL (70-99) 194 mg/dL (70-99) Calcium Level 8.9 mg/dL (8.5-10.1) 8.4 mg/dL (8.5-10.1) Total Bilirubin 0.3 mg/dL (0.2-1.0) Aspartate Amino Transf (AST/SGOT) 11 U/L (15-37) Alanine Aminotransferase (ALT/SGPT) 15 U/L (16-63) Alkaline Phosphatase 82 U/L (46-116) Troponin I Quantitative < 0.017 ng/mL (0.000-0.055) < 0.017 ng/mL (0.000-0.055) Total Protein 7.0 g/dL (6.4-8.2) Albumin 3.8 g/dL (3.4-5.0) Albumin/Globulin Ratio 1.2 (1.0-1.7) Glucose (Fingerstick) 97 mg/dL (70-99) Assessment and Plan Assessmemt and Plan Problems Medical Problems: (1) Chest pain Status: Acute Comment Review of Relevant I have reviewed the following items beata (where applicable) has been applied. Labs Laboratory Tests Test 03/25/20 17:10 03/26/20 00:33 03/26/20 07:39 White Blood Count 7.6 x10^3/uL (4.0-11.0) 9.2 x10^3/uL (4.0-11.0) Red Blood Count 5.33 x10^6/uL (4.30-5.70) 5.05 x10^6/uL (4.30-5.70) Hemoglobin 15.3 g/dL (13.0-17.5) 14.3 g/dL (13.0-17.5) Hematocrit 44.5 % (39.0-53.0) 42.3 % (39.0-53.0) Mean Corpuscular Volume 84 fL (79-100) 84 fL (79-100) Mean Corpuscular Hemoglobin 29 pg (25-35) 28 pg (25-35) Mean Corpuscular Hemoglobin Concent 34 g/dL (31-37) 34 g/dL (31-37) Red Cell Distribution Width 14.0 % (11.5-14.5) 13.7 % (11.5-14.5) Platelet Count 272 x10^3/uL (140-400) 243 x10^3/uL (140-400) Neutrophils (%) (Auto) 55 % (31-73) 61 % (31-73) Lymphocytes (%) (Auto) 32 % (24-48) 28 % (24-48) Monocytes (%) (Auto) 8 % (0-9) 6 % (0-9) Eosinophils (%) (Auto) 5 % (0-3) 3 % (0-3) Basophils (%) (Auto) 1 % (0-3) 1 % (0-3) Neutrophils # (Auto) 4.2 x10^3/uL (1.8-7.7) 5.7 x10^3/uL (1.8-7.7) Lymphocytes # (Auto) 2.4 x10^3/uL (1.0-4.8) 2.6 x10^3/uL (1.0-4.8) Monocytes # (Auto) 0.6 x10^3/uL (0.0-1.1) 0.6 x10^3/uL (0.0-1.1) Eosinophils # (Auto) 0.4 x10^3/uL (0.0-0.7) 0.3 x10^3/uL (0.0-0.7) Basophils # (Auto) 0.0 x10^3/uL (0.0-0.2) 0.1 x10^3/uL (0.0-0.2) Prothrombin Time 12.4 SEC (11.7-14.0) Prothromb Time International Ratio 1.0 (0.8-1.1) Activated Partial Thromboplast Time 27 SEC (24-38) D-Dimer (Diane) < 0.27 ug/mlFEU Sodium Level 140 mmol/L (136-145) 140 mmol/L (136-145) Potassium Level 4.1 mmol/L (3.5-5.1) 3.8 mmol/L (3.5-5.1) Chloride Level 103 mmol/L (98-107) 104 mmol/L (98-107) Carbon Dioxide Level 32 mmol/L (21-32) 25 mmol/L (21-32) Anion Gap 5 (6-14) 11 (6-14) Blood Urea Nitrogen 12 mg/dL (8-26) 16 mg/dL (8-26) Creatinine 1.0 mg/dL (0.7-1.3) 1.0 mg/dL (0.7-1.3) Estimated GFR (Cockcroft-Gault) 75.7 75.7 BUN/Creatinine Ratio 12 (6-20) Glucose Level 135 mg/dL (70-99) 194 mg/dL (70-99) Calcium Level 8.9 mg/dL (8.5-10.1) 8.4 mg/dL (8.5-10.1) Total Bilirubin 0.3 mg/dL (0.2-1.0) Aspartate Amino Transf (AST/SGOT) 11 U/L (15-37) Alanine Aminotransferase (ALT/SGPT) 15 U/L (16-63) Alkaline Phosphatase 82 U/L (46-116) Troponin I Quantitative < 0.017 ng/mL (0.000-0.055) < 0.017 ng/mL (0.000-0.055) Total Protein 7.0 g/dL (6.4-8.2) Albumin 3.8 g/dL (3.4-5.0) Albumin/Globulin Ratio 1.2 (1.0-1.7) Glucose (Fingerstick) 97 mg/dL (70-99) Laboratory Tests Test 03/25/20 17:10 03/26/20 00:33 03/26/20 07:39 White Blood Count 7.6 x10^3/uL (4.0-11.0) 9.2 x10^3/uL (4.0-11.0) Red Blood Count 5.33 x10^6/uL (4.30-5.70) 5.05 x10^6/uL (4.30-5.70) Hemoglobin 15.3 g/dL (13.0-17.5) 14.3 g/dL (13.0-17.5) Hematocrit 44.5 % (39.0-53.0) 42.3 % (39.0-53.0) Mean Corpuscular Volume 84 fL (79-100) 84 fL (79-100) Mean Corpuscular Hemoglobin 29 pg (25-35) 28 pg (25-35) Mean Corpuscular Hemoglobin Concent 34 g/dL (31-37) 34 g/dL (31-37) Red Cell Distribution Width 14.0 % (11.5-14.5) 13.7 % (11.5-14.5) Platelet Count 272 x10^3/uL (140-400) 243 x10^3/uL (140-400) Neutrophils (%) (Auto) 55 % (31-73) 61 % (31-73) Lymphocytes (%) (Auto) 32 % (24-48) 28 % (24-48) Monocytes (%) (Auto) 8 % (0-9) 6 % (0-9) Eosinophils (%) (Auto) 5 % (0-3) 3 % (0-3) Basophils (%) (Auto) 1 % (0-3) 1 % (0-3) Neutrophils # (Auto) 4.2 x10^3/uL (1.8-7.7) 5.7 x10^3/uL (1.8-7.7) Lymphocytes # (Auto) 2.4 x10^3/uL (1.0-4.8) 2.6 x10^3/uL (1.0-4.8) Monocytes # (Auto) 0.6 x10^3/uL (0.0-1.1) 0.6 x10^3/uL (0.0-1.1) Eosinophils # (Auto) 0.4 x10^3/uL (0.0-0.7) 0.3 x10^3/uL (0.0-0.7) Basophils # (Auto) 0.0 x10^3/uL (0.0-0.2) 0.1 x10^3/uL (0.0-0.2) Prothrombin Time 12.4 SEC (11.7-14.0) Prothromb Time International Ratio 1.0 (0.8-1.1) Activated Partial Thromboplast Time 27 SEC (24-38) D-Dimer (Diane) < 0.27 ug/mlFEU Sodium Level 140 mmol/L (136-145) 140 mmol/L (136-145) Potassium Level 4.1 mmol/L (3.5-5.1) 3.8 mmol/L (3.5-5.1) Chloride Level 103 mmol/L (98-107) 104 mmol/L (98-107) Carbon Dioxide Level 32 mmol/L (21-32) 25 mmol/L (21-32) Anion Gap 5 (6-14) 11 (6-14) Blood Urea Nitrogen 12 mg/dL (8-26) 16 mg/dL (8-26) Creatinine 1.0 mg/dL (0.7-1.3) 1.0 mg/dL (0.7-1.3) Estimated GFR (Cockcroft-Gault) 75.7 75.7 BUN/Creatinine Ratio 12 (6-20) Glucose Level 135 mg/dL (70-99) 194 mg/dL (70-99) Calcium Level 8.9 mg/dL (8.5-10.1) 8.4 mg/dL (8.5-10.1) Total Bilirubin 0.3 mg/dL (0.2-1.0) Aspartate Amino Transf (AST/SGOT) 11 U/L (15-37) Alanine Aminotransferase (ALT/SGPT) 15 U/L (16-63) Alkaline Phosphatase 82 U/L (46-116) Troponin I Quantitative < 0.017 ng/mL (0.000-0.055) < 0.017 ng/mL (0.000-0.055) Total Protein 7.0 g/dL (6.4-8.2) Albumin 3.8 g/dL (3.4-5.0) Albumin/Globulin Ratio 1.2 (1.0-1.7) Glucose (Fingerstick) 97 mg/dL (70-99) Medications Current Medications Aspirin (Aspirin Chewable) 324 mg 1X ONCE PO Last administered on 03/25/20at 17:58; Start 03/25/20 at 18:00; Stop 03/25/20 at 18:01; Status DC Nitroglycerin (Nitrostat) 0.4 mg PRN Q5MIN PRN SL CHEST PAIN Last administered on 03/25/20at 17:58; Start 03/25/20 at 18:00 Pantoprazole Sodium (Protonix) 40 mg DAILYAC PO ; Start 03/26/20 at 09:30 Active Scripts Active Lisinopril 2.5 Mg Tablet 1 Tab PO DAILY Reported Aspirin 81 Mg Tab.chew 1 Tab PO DAILY Atorvastatin Calcium 20 Mg Tablet 1 Tab PO HS Metformin Hcl 1,000 Mg Tablet 1,000 Mg PO BIDWMEALS Vitals/I & O Vital Sign - Last 24 Hours 03/25/20 03/25/20 03/25/20 03/25/20 17:10 17:13 17:43 17:58 Temp 98.7 98.7 Pulse 6 65 66 6 Resp 16 B/P (MAP) 135/73 (93) 135/73 (93) 136/69 (91) 135/73 Pulse Ox 98 O2 Delivery Room Air Room Air Room Air 03/25/20 03/25/20 03/26/20 03/26/20 19:56 23:00 03:00 06:46 Temp 97.8 97.6 97.8 97.6 Pulse 66 63 64 Resp 18 18 B/P (MAP) 140/63 (88) 132/84 (100) 113/72 (86) Pulse Ox 97 95 O2 Delivery Room Air Room Air Room Air Room Air 03/26/20 07:56 Temp 97.9 97.9 Pulse 59 Resp 18 B/P (MAP) 121/75 (90) Pulse Ox 98 O2 Delivery Room Air Intake and Output 03/25/20 03/25/20 03/26/20 15:00 23:00 07:00 Intake Total 240 ml Balance 240 ml PILY TORIBIO MD March 26, 2020 09:24
[2020-03-26 09:56] LABS: CHOLESTEROL/HDL RATIO 3.6
[2020-03-26] MEDS: PANTOPRAZOLE 40 MG TABLET.DR. PO SCH (10:11)
[2020-03-26] MEDS ORDERED: PANT40TA77 PO (11:05)
[2020-03-26 11:36] VITALS: BP 124/76
--- NOTE | 2020-03-26 12:57 | NUR ---
SS following for discharge planning. SS reviewed pt chart and discussed with pt RN. Pt is from home with spouse and is currently on room air. Echocardiogram ordered. SS will continue to follow for discharge planning.
[2020-03-26] MEDS: LIDO:MAALOX 1:1 20 ML SINGLE DOSE. PO PRN (13:26)
--- NOTE | 2020-03-26 14:39 | PDOC2 ---
JUAN ALBERTO COX SERVICE DESK AGENT 03/26/20 1439: CARDIAC CONSULT DATE OF CONSULT Date of Consult DATE: 03/26/20 TIME: 0940 REASON FOR CONSULT Reason for Consult: Chest pain REFERRING PHYSICIAN Referring Physician: Chencho SOURCE Source: Chart review, Patient HISTORY OF PRESENT ILLNESS HISTORY OF PRESENT ILLNESS This is a pleasant 64 yo male admitted for complains of chest pain. Reports that thi9s is left side radiating to left shoulder feeling like heartburn and not associated with nausea or vomiting. No palpitations, diaphoresis. This is also reproducible. This started about Sunday not associated with exertion. He does have DM2, HTN and HLP and compliant with medications. No hx of any recent falls, injury, heavy lifting and no PUD, CAD or any past arrhythmias. He walks about 2 miles 3 x a week with last walk Sunday without any difficulty. Presently no discomfort. PAST MEDICAL HISTORY Cardiovascular: HTN, Hyperlipidemia Musculoskeletal: Osteoarthritis Endocrine: Diabetes (2) PAST SURGICAL HISTORY Past Surgical History: Other (left femoral fracture repair) FAMILY HISTORY Family History: Heart Disease SOCIAL HISTORY Smoke: No ALCOHOL: none Drugs: None Lives: with Family CURRENT MEDICATIONS CURRENT MEDICATIONS Current Medications Medications (Trade) Dose Ordered Sig/Porfirio Route PRN Reason Start Time Stop Time Status Last Admin Dose Admin Aspirin (Aspirin Chewable) 324 mg 1X ONCE PO 03/25/20 18:00 03/25/20 18:01 DC 03/25/20 17:58 Nitroglycerin (Nitrostat) 0.4 mg PRN Q5MIN PRN SL CHEST PAIN 03/25/20 18:00 03/25/20 17:58 Pantoprazole Sodium (Protonix) 40 mg DAILYAC PO 03/26/20 09:30 03/26/20 10:11 Multi-Ingredient Mouthwash/Gargle (Gi Cocktail) 20 ml PRN QID PRN PO CHEST PAIN 03/26/20 13:30 03/26/20 13:26 ALLERGIES ALLERGIES: Coded Allergies: No Known Drug Allergies (Unverified , 02/15/17) ROS Review of System 14 point ROS evaluated with pertinent positives noted per HPI PHYSICAL EXAM General: Alert, Oriented X3, Cooperative, No acute distress HEENT: Atraumatic, Mucous membr. moist/pink Lungs: Clear to auscultation, Normal air movement Heart: Regular rate (SR), Normal S1, Normal S2, No murmurs Abdomen: Soft, No tenderness Extremities: No cyanosis, No edema Skin: No breakdown, No significant lesion Neuro: Normal speech, Sensation intact Psych/Mental Status: Mental status NL, Mood NL MUSCULOSKELETAL: Osteoarthritic changes both hands VITALS/I&O VITALS/I&O: Vital Signs Date Time Temp Pulse Resp B/P (MAP) Pulse Ox O2 Delivery O2 Flow Rate FiO2 03/26/20 11:36 97.8 60 16 124/76 (92) 98 Room Air 97.8 I & O 03/25/20 03/25/20 03/26/20 15:00 23:00 07:00 Intake Total 240 ml Balance 240 ml LABS Lab: Laboratory Tests Test 03/25/20 17:10 03/26/20 00:33 03/26/20 07:39 03/26/20 10:10 White Blood Count 7.6 x10^3/uL (4.0-11.0) 9.2 x10^3/uL (4.0-11.0) Red Blood Count 5.33 x10^6/uL (4.30-5.70) 5.05 x10^6/uL (4.30-5.70) Hemoglobin 15.3 g/dL (13.0-17.5) 14.3 g/dL (13.0-17.5) Hematocrit 44.5 % (39.0-53.0) 42.3 % (39.0-53.0) Mean Corpuscular Volume 84 fL (79-100) 84 fL (79-100) Mean Corpuscular Hemoglobin 29 pg (25-35) 28 pg (25-35) Mean Corpuscular Hemoglobin Concent 34 g/dL (31-37) 34 g/dL (31-37) Red Cell Distribution Width 14.0 % (11.5-14.5) 13.7 % (11.5-14.5) Platelet Count 272 x10^3/uL (140-400) 243 x10^3/uL (140-400) Neutrophils (%) (Auto) 55 % (31-73) 61 % (31-73) Lymphocytes (%) (Auto) 32 % (24-48) 28 % (24-48) Monocytes (%) (Auto) 8 % (0-9) 6 % (0-9) Eosinophils (%) (Auto) 5 % (0-3) H 3 % (0-3) Basophils (%) (Auto) 1 % (0-3) 1 % (0-3) Neutrophils # (Auto) 4.2 x10^3/uL (1.8-7.7) 5.7 x10^3/uL (1.8-7.7) Lymphocytes # (Auto) 2.4 x10^3/uL (1.0-4.8) 2.6 x10^3/uL (1.0-4.8) Monocytes # (Auto) 0.6 x10^3/uL (0.0-1.1) 0.6 x10^3/uL (0.0-1.1) Eosinophils # (Auto) 0.4 x10^3/uL (0.0-0.7) 0.3 x10^3/uL (0.0-0.7) Basophils # (Auto) 0.0 x10^3/uL (0.0-0.2) 0.1 x10^3/uL (0.0-0.2) Prothrombin Time 12.4 SEC (11.7-14.0) Prothrombin Time INR 1.0 (0.8-1.1) Activated Partial Thromboplast Time 27 SEC (24-38) D-Dimer (Diane) < 0.27 ug/mlFEU Sodium Level 140 mmol/L (136-145) 140 mmol/L (136-145) Potassium Level 4.1 mmol/L (3.5-5.1) 3.8 mmol/L (3.5-5.1) Chloride Level 103 mmol/L (98-107) 104 mmol/L (98-107) Carbon Dioxide Level 32 mmol/L (21-32) 25 mmol/L (21-32) Anion Gap 5 (6-14) L 11 (6-14) Blood Urea Nitrogen 12 mg/dL (8-26) 16 mg/dL (8-26) Creatinine 1.0 mg/dL (0.7-1.3) 1.0 mg/dL (0.7-1.3) Estimated GFR (Cockcroft-Gault) 75.7 75.7 BUN/Creatinine Ratio 12 (6-20) Glucose Level 135 mg/dL (70-99) H 194 mg/dL (70-99) H Calcium Level 8.9 mg/dL (8.5-10.1) 8.4 mg/dL (8.5-10.1) L Total Bilirubin 0.3 mg/dL (0.2-1.0) Aspartate Amino Transferase (AST) 11 U/L (15-37) L Alanine Aminotransferase (ALT) 15 U/L (16-63) L Alkaline Phosphatase 82 U/L (46-116) Troponin I Quantitative < 0.017 ng/mL (0.000-0.055) < 0.017 ng/mL (0.000-0.055) < 0.017 ng/mL (0.000-0.055) Total Protein 7.0 g/dL (6.4-8.2) Albumin 3.8 g/dL (3.4-5.0) Albumin/Globulin Ratio 1.2 (1.0-1.7) Triglycerides Level 114 mg/dL (0-150) Cholesterol Level 107 mg/dL (0-200) LDL Cholesterol, Calculated 54 mg/dL (0-100) VLDL Cholesterol, Calculated 23 mg/dL (0-40) Non-HDL Cholesterol Calculated 77 mg/dL (0-129) HDL Cholesterol 30 mg/dL (40-60) L Cholesterol/HDL Ratio 3.6 Thyroid Stimulating Hormone (TSH) 2.816 uIU/mL (0.358-3.74) Glucose (Fingerstick) 97 mg/dL (70-99) Test 03/26/20 11:21 Glucose (Fingerstick) 190 mg/dL (70-99) H Laboratory Tests 03/25/20 17:10 03/26/20 00:33 Laboratory Tests 03/25/20 17:10 03/26/20 00:33 ASSESSMENT/PLAN ASSESSMENT/PLAN 1. Atypical chest pain: possibly GI 2. Possible GERD exacerbation 3. HTN: controlled 4. HLP 5. DM2 Recommendations 1. TSH, lipids, TTE 2. Continue home regimen, ACEi, statin and ASA. 3. Start PPI. Discussed GERD prevention 4. Follow up in office and will consider outpt MPI if CP continues. JEF MCKEON MD 03/27/20 0830: CARDIAC CONSULT ASSESSMENT/PLAN ASSESSMENT/PLAN Late entry for 03/26/2020 Pt. seen and examined. Agree with above [employer] TE[employer] LIBRARIAN note. 64 y.o male with likely GERD pain. He describes some exertional dyspnea. Negative cardiac biomarkers. Ok to DC with outpt stress testing next week due to history of DM2. Thanks. JUAN ALBERTO COX APRN March 26, 2020 14:39 JEF MCKEON MD March 27, 2020 08:30
[2020-03-26 15:11] VITALS: BP 129/80
--- NOTE | 2020-03-26 17:16 | PDOC2 ---
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 Began having heartburn (burning in central est) on Sunday. On , developed left shoulder pain and cramping down left arm. Came to hospital to get his heart checked. Pain still present but better. Occurs after eating. A liquid medication helps for awhile. Sometimes felt in upper back. No h/o heartburn. Denies dysphagia/odynophagia to me. No n/v, abd pain,early satiety, bloating, diarrhea, constipation, hematochezia, melena, or weight loss. No previous EGD. Colonoscopy 5-10 years ago w/ polyp, thinks it's time for a recheck. No GB, liver, pancreas, or PUD history. Daily ASA. Took some Naproxen a couple weeks ago for back pain. Mentions PSA elevated as outpt. PMH: PMH: DM, HLD left femur fracture repair FH: Family History: Cancer (daughter and sister - stomach) Social History: Smoke: No ALCOHOL: none Drugs: None ROS: GEN: Denies fevers, chills, sweats HEENT: Denies blurred vision, sore throat CV: +chest pain RESP: Denies shortness of air, cough GI: Per HPI : Denies hematuria, dysuria ENDO: Denies weight changes NEURO: Denies confusion, dizziness MSK: left arm pain SKIN: Denies jaundice, pruritus Vitals: Vitals: Vital Signs Date Time Temp Pulse Resp B/P (MAP) Pulse Ox O2 Delivery O2 Flow Rate FiO2 03/26/20 15:11 97.6 63 18 129/80 (96) 98 Room Air 97.6 Labs: Labs: Laboratory Tests Test 03/26/20 00:33 03/26/20 07:39 03/26/20 10:10 03/26/20 11:21 White Blood Count 9.2 x10^3/uL (4.0-11.0) Red Blood Count 5.05 x10^6/uL (4.30-5.70) Hemoglobin 14.3 g/dL (13.0-17.5) Hematocrit 42.3 % (39.0-53.0) Mean Corpuscular Volume 84 fL (79-100) Mean Corpuscular Hemoglobin 28 pg (25-35) Mean Corpuscular Hemoglobin Concent 34 g/dL (31-37) Red Cell Distribution Width 13.7 % (11.5-14.5) Platelet Count 243 x10^3/uL (140-400) Neutrophils (%) (Auto) 61 % (31-73) Lymphocytes (%) (Auto) 28 % (24-48) Monocytes (%) (Auto) 6 % (0-9) Eosinophils (%) (Auto) 3 % (0-3) Basophils (%) (Auto) 1 % (0-3) Neutrophils # (Auto) 5.7 x10^3/uL (1.8-7.7) Lymphocytes # (Auto) 2.6 x10^3/uL (1.0-4.8) Monocytes # (Auto) 0.6 x10^3/uL (0.0-1.1) Eosinophils # (Auto) 0.3 x10^3/uL (0.0-0.7) Basophils # (Auto) 0.1 x10^3/uL (0.0-0.2) Sodium Level 140 mmol/L (136-145) Potassium Level 3.8 mmol/L (3.5-5.1) Chloride Level 104 mmol/L (98-107) Carbon Dioxide Level 25 mmol/L (21-32) Anion Gap 11 (6-14) Blood Urea Nitrogen 16 mg/dL (8-26) Creatinine 1.0 mg/dL (0.7-1.3) Estimated GFR (Cockcroft-Gault) 75.7 Glucose Level 194 mg/dL (70-99) Calcium Level 8.4 mg/dL (8.5-10.1) Troponin I Quantitative < 0.017 ng/mL (0.000-0.055) < 0.017 ng/mL (0.000-0.055) Triglycerides Level 114 mg/dL (0-150) Cholesterol Level 107 mg/dL (0-200) LDL Cholesterol, Calculated 54 mg/dL (0-100) VLDL Cholesterol, Calculated 23 mg/dL (0-40) Non-HDL Cholesterol Calculated 77 mg/dL (0-129) HDL Cholesterol 30 mg/dL (40-60) Cholesterol/HDL Ratio 3.6 Thyroid Stimulating Hormone (TSH) 2.816 uIU/mL (0.358-3.74) Glucose (Fingerstick) 97 mg/dL (70-99) 190 mg/dL (70-99) Test 03/26/20 16:31 Glucose (Fingerstick) 103 mg/dL (70-99) Allergies: Coded Allergies: No Known Drug Allergies (Unverified , 02/15/17) Medications: Current Medications Medications (Trade) Dose Ordered Sig/Porfirio Route PRN Reason Start Time Stop Time Status Last Admin Dose Admin Aspirin (Aspirin Chewable) 324 mg 1X ONCE PO 03/25/20 18:00 03/25/20 18:01 DC 03/25/20 17:58 Nitroglycerin (Nitrostat) 0.4 mg PRN Q5MIN PRN SL CHEST PAIN 03/25/20 18:00 03/25/20 17:58 Pantoprazole Sodium (Protonix) 40 mg DAILYAC PO 03/26/20 09:30 03/26/20 10:11 Multi-Ingredient Mouthwash/Gargle (Gi Cocktail) 20 ml PRN QID PRN PO CHEST PAIN 03/26/20 13:30 03/26/20 13:26 Imaging: Imaging: CXR IMPRESSION: There is no acute cardiopulmonary process. PE: GEN: NAD HEENT: Atraumatic, PERRL LUNGS: CTAB HEART: RRR, ABD: NABS, S/ND/NT EXTREMITY: No edema SKIN: No rashes, no jaundice NEURO/PSYCH: A & O 3 A/P: A/P: Atypical chest pain, heartburn CRC screen, h/o polyp FH stomach cancer -- Agree w/ cardiac workup and trial of PPI w/ GI cocktail PRN. Can pursue EGD as outpt w/ screening colonoscopy. MORAIMA AKHTAR MD 03/26/20 1719: IRIS BARRON March 26, 2020 17:16 MORAIMA AKHTAR MD March 26, 2020 17:19
[2020-03-26 19:00] VITALS: BP 112/75
[2020-03-26 23:00] VITALS: BP 116/76
[2020-03-27 00:08] LABS: HEMOGLOBIN A1C 6.4 % (4.8-5.6)
[2020-03-27 03:00] VITALS: BP 115/67
[2020-03-27 07:15] VITALS: BP 126/72
--- NOTE | 2020-03-27 07:31 | PDOC ---
PROGRESS NOTES Chief Complaint Chief Complaint A/P: Chest pain - atypical features, high risk for CAD, however DM2 - sliding scale, A1c HLD HTN 02/16/2017 Lexiscan - 1. No EKG evidence of stress-induced ischemia. 2. Nuclear imaging shows no reversible ischemia. 3. Nuclear imaging shows mild fixed thinning in the inferior lateral region most consistent with a technical artifact. 4. Left ventricular systolic function is normal. There are no regional wall motion abnormalities. Ejection fraction is greater than 70%. 5. Low to moderately low risk nuclear stress test. History of Present Illness History of Present Illness Mr Best is a 64 yo M w/ PMHx DM2, HLD who presented with chest pain. Negative CXR, negative troponin x2. EKG with left anterior fascicular block. Compared to his 2017 EKG this appears unchanged to me. 03/26: His pain improved with GI cocktail. Today still has a little bit of discomfort not reproducible food and breathing does not change it. Kept overnight secondary to complaints of food "sticking", GI consulted. HbA1c returned at 6.4. No CP or SOB. Plan: Outpatient stress test with cardiology. Has some dyspnea on exertion. EGD after stress test outpatient. Discharge home with Protonix 30 days. Vitals Vitals Vital Signs Date Time Temp Pulse Resp B/P (MAP) Pulse Ox O2 Delivery O2 Flow Rate FiO2 03/27/20 03:00 97.9 69 16 115/67 (83) 95 97.9 03/26/20 20:15 Room Air Physical Exam General: Alert, Oriented X3, Cooperative, No acute distress Heart: Regular rate (SR), Normal S1, Normal S2, No murmurs Lungs: Clear Abdomen: Soft, No tenderness Extremities: No cyanosis, No edema Skin: No breakdown, No significant lesion Labs LABS Laboratory Tests Test 03/26/20 07:39 03/26/20 10:10 03/26/20 11:21 03/26/20 16:31 Glucose (Fingerstick) 97 mg/dL (70-99) 190 mg/dL (70-99) 103 mg/dL (70-99) Troponin I Quantitative < 0.017 ng/mL (0.000-0.055) Test 03/26/20 21:23 03/27/20 07:21 Glucose (Fingerstick) 152 mg/dL (70-99) 107 mg/dL (70-99) Assessment and Plan Assessmemt and Plan Problems Medical Problems: (1) Chest pain Status: Acute Comment Review of Relevant I have reviewed the following items beata (where applicable) has been applied. Labs Laboratory Tests Test 03/25/20 17:10 03/26/20 00:33 03/26/20 07:39 03/26/20 10:10 White Blood Count 7.6 x10^3/uL (4.0-11.0) 9.2 x10^3/uL (4.0-11.0) Red Blood Count 5.33 x10^6/uL (4.30-5.70) 5.05 x10^6/uL (4.30-5.70) Hemoglobin 15.3 g/dL (13.0-17.5) 14.3 g/dL (13.0-17.5) Hematocrit 44.5 % (39.0-53.0) 42.3 % (39.0-53.0) Mean Corpuscular Volume 84 fL (79-100) 84 fL (79-100) Mean Corpuscular Hemoglobin 29 pg (25-35) 28 pg (25-35) Mean Corpuscular Hemoglobin Concent 34 g/dL (31-37) 34 g/dL (31-37) Red Cell Distribution Width 14.0 % (11.5-14.5) 13.7 % (11.5-14.5) Platelet Count 272 x10^3/uL (140-400) 243 x10^3/uL (140-400) Neutrophils (%) (Auto) 55 % (31-73) 61 % (31-73) Lymphocytes (%) (Auto) 32 % (24-48) 28 % (24-48) Monocytes (%) (Auto) 8 % (0-9) 6 % (0-9) Eosinophils (%) (Auto) 5 % (0-3) 3 % (0-3) Basophils (%) (Auto) 1 % (0-3) 1 % (0-3) Neutrophils # (Auto) 4.2 x10^3/uL (1.8-7.7) 5.7 x10^3/uL (1.8-7.7) Lymphocytes # (Auto) 2.4 x10^3/uL (1.0-4.8) 2.6 x10^3/uL (1.0-4.8) Monocytes # (Auto) 0.6 x10^3/uL (0.0-1.1) 0.6 x10^3/uL (0.0-1.1) Eosinophils # (Auto) 0.4 x10^3/uL (0.0-0.7) 0.3 x10^3/uL (0.0-0.7) Basophils # (Auto) 0.0 x10^3/uL (0.0-0.2) 0.1 x10^3/uL (0.0-0.2) Prothrombin Time 12.4 SEC (11.7-14.0) Prothromb Time International Ratio 1.0 (0.8-1.1) Activated Partial Thromboplast Time 27 SEC (24-38) D-Dimer (Diane) < 0.27 ug/mlFEU Sodium Level 140 mmol/L (136-145) 140 mmol/L (136-145) Potassium Level 4.1 mmol/L (3.5-5.1) 3.8 mmol/L (3.5-5.1) Chloride Level 103 mmol/L (98-107) 104 mmol/L (98-107) Carbon Dioxide Level 32 mmol/L (21-32) 25 mmol/L (21-32) Anion Gap 5 (6-14) 11 (6-14) Blood Urea Nitrogen 12 mg/dL (8-26) 16 mg/dL (8-26) Creatinine 1.0 mg/dL (0.7-1.3) 1.0 mg/dL (0.7-1.3) Estimated GFR (Cockcroft-Gault) 75.7 75.7 BUN/Creatinine Ratio 12 (6-20) Glucose Level 135 mg/dL (70-99) 194 mg/dL (70-99) Hemoglobin A1c 6.4 % (4.8-5.6) Calcium Level 8.9 mg/dL (8.5-10.1) 8.4 mg/dL (8.5-10.1) Total Bilirubin 0.3 mg/dL (0.2-1.0) Aspartate Amino Transf (AST/SGOT) 11 U/L (15-37) Alanine Aminotransferase (ALT/SGPT) 15 U/L (16-63) Alkaline Phosphatase 82 U/L (46-116) Troponin I Quantitative < 0.017 ng/mL (0.000-0.055) < 0.017 ng/mL (0.000-0.055) < 0.017 ng/mL (0.000-0.055) Total Protein 7.0 g/dL (6.4-8.2) Albumin 3.8 g/dL (3.4-5.0) Albumin/Globulin Ratio 1.2 (1.0-1.7) Triglycerides Level 114 mg/dL (0-150) Cholesterol Level 107 mg/dL (0-200) LDL Cholesterol, Calculated 54 mg/dL (0-100) VLDL Cholesterol, Calculated 23 mg/dL (0-40) Non-HDL Cholesterol Calculated 77 mg/dL (0-129) HDL Cholesterol 30 mg/dL (40-60) Cholesterol/HDL Ratio 3.6 Thyroid Stimulating Hormone (TSH) 2.816 uIU/mL (0.358-3.74) Glucose (Fingerstick) 97 mg/dL (70-99) Test 03/26/20 11:21 03/26/20 16:31 03/26/20 21:23 03/27/20 07:21 Glucose (Fingerstick) 190 mg/dL (70-99) 103 mg/dL (70-99) 152 mg/dL (70-99) 107 mg/dL (70-99) Laboratory Tests Test 03/26/20 07:39 03/26/20 10:10 03/26/20 11:21 03/26/20 16:31 Glucose (Fingerstick) 97 mg/dL (70-99) 190 mg/dL (70-99) 103 mg/dL (70-99) Troponin I Quantitative < 0.017 ng/mL (0.000-0.055) Test 03/26/20 21:23 03/27/20 07:21 Glucose (Fingerstick) 152 mg/dL (70-99) 107 mg/dL (70-99) Medications Current Medications Aspirin (Aspirin Chewable) 324 mg 1X ONCE PO Last administered on 03/25/20at 17:58; Start 03/25/20 at 18:00; Stop 03/25/20 at 18:01; Status DC Nitroglycerin (Nitrostat) 0.4 mg PRN Q5MIN PRN SL CHEST PAIN Last administered on 03/25/20at 17:58; Start 03/25/20 at 18:00 Pantoprazole Sodium (Protonix) 40 mg DAILYAC PO Last administered on 03/26/20at 10:11; Start 03/26/20 at 09:30 Multi-Ingredient Mouthwash/Gargle (Gi Cocktail) 20 ml PRN QID PRN PO CHEST PAIN Last administered on 03/26/20at 13:26; Start 03/26/20 at 13:30 Active Scripts Active Pantoprazole Sodium (Pantoprazole Sodium) 40 Mg Tablet.dr 40 Mg PO DAILYAC 30 Days Lisinopril 2.5 Mg Tablet 1 Tab PO DAILY Reported Aspirin 81 Mg Tab.chew 1 Tab PO DAILY Atorvastatin Calcium 20 Mg Tablet 1 Tab PO HS Metformin Hcl 1,000 Mg Tablet 1,000 Mg PO BIDWMEALS Vitals/I & O Vital Sign - Last 24 Hours 03/26/20 03/26/20 03/26/20 03/26/20 07:56 08:00 11:36 15:11 Temp 97.9 97.8 97.6 97.9 97.8 97.6 Pulse 59 60 63 Resp 18 16 18 B/P (MAP) 121/75 (90) 124/76 (92) 129/80 (96) Pulse Ox 98 98 98 O2 Delivery Room Air Room Air Room Air Room Air 03/26/20 03/26/20 03/26/20 03/27/20 19:00 20:15 23:00 03:00 Temp 98.0 98.7 97.9 98.0 98.7 97.9 Pulse 64 60 69 Resp 18 16 16 B/P (MAP) 112/75 (87) 116/76 (89) 115/67 (83) Pulse Ox 96 95 95 O2 Delivery Room Air Intake and Output 03/26/20 03/26/20 03/27/20 15:00 23:00 07:00 Intake Total 280 ml 200 ml Balance 280 ml 200 ml PILY TORIBIO MD March 27, 2020 07:31
[2020-03-27] MEDS ORDERED: metFORMIN 500 MG TABLET PO SCH (08:00)
[2020-03-27] MEDS ORDERED: ACETAMINOPHEN 325 MG TABLET. PO PRN (08:15)
[2020-03-27] MEDS ORDERED: ONDANSETRON PF 4 MG/2 ML VIAL. IVP PRN (08:15)
[2020-03-27] MEDS: LIDO:MAALOX 1:1 20 ML SINGLE DOSE. PO PRN (08:25)
[2020-03-27] MEDS: PANTOPRAZOLE 40 MG TABLET.DR. PO SCH (09:49)
[2020-03-27 11:48] VITALS: BP 132/67
--- NOTE | 2020-03-27 12:52 | PDOC3 ---
Discharge Summary Visit Information Date of Admission: March 25, 2020 Date of Discharge: March 27, 2020 Admitting Diagnosis: Chest pain Final Diagnosis Problems Medical Problems: (1) Chest pain Status: Acute Brief Hospital Course Allergies Allergies Coded Allergies Type Severity Reaction Last Updated Verified No Known Drug Allergies 02/15/17 No Vital Signs Vital Signs Date Time Temp Pulse Resp B/P (MAP) Pulse Ox O2 Delivery O2 Flow Rate FiO2 03/27/20 11:48 98.8 65 18 132/67 (88) 99 Room Air 98.8 Lab Results Laboratory Tests Test 03/25/20 17:10 03/26/20 00:33 03/26/20 07:39 03/26/20 10:10 White Blood Count 7.6 x10^3/uL (4.0-11.0) 9.2 x10^3/uL (4.0-11.0) Red Blood Count 5.33 x10^6/uL (4.30-5.70) 5.05 x10^6/uL (4.30-5.70) Hemoglobin 15.3 g/dL (13.0-17.5) 14.3 g/dL (13.0-17.5) Hematocrit 44.5 % (39.0-53.0) 42.3 % (39.0-53.0) Mean Corpuscular Volume 84 fL (79-100) 84 fL (79-100) Mean Corpuscular Hemoglobin 29 pg (25-35) 28 pg (25-35) Mean Corpuscular Hemoglobin Concent 34 g/dL (31-37) 34 g/dL (31-37) Red Cell Distribution Width 14.0 % (11.5-14.5) 13.7 % (11.5-14.5) Platelet Count 272 x10^3/uL (140-400) 243 x10^3/uL (140-400) Neutrophils (%) (Auto) 55 % (31-73) 61 % (31-73) Lymphocytes (%) (Auto) 32 % (24-48) 28 % (24-48) Monocytes (%) (Auto) 8 % (0-9) 6 % (0-9) Eosinophils (%) (Auto) 5 % (0-3) 3 % (0-3) Basophils (%) (Auto) 1 % (0-3) 1 % (0-3) Neutrophils # (Auto) 4.2 x10^3/uL (1.8-7.7) 5.7 x10^3/uL (1.8-7.7) Lymphocytes # (Auto) 2.4 x10^3/uL (1.0-4.8) 2.6 x10^3/uL (1.0-4.8) Monocytes # (Auto) 0.6 x10^3/uL (0.0-1.1) 0.6 x10^3/uL (0.0-1.1) Eosinophils # (Auto) 0.4 x10^3/uL (0.0-0.7) 0.3 x10^3/uL (0.0-0.7) Basophils # (Auto) 0.0 x10^3/uL (0.0-0.2) 0.1 x10^3/uL (0.0-0.2) Prothrombin Time 12.4 SEC (11.7-14.0) Prothromb Time International Ratio 1.0 (0.8-1.1) Activated Partial Thromboplast Time 27 SEC (24-38) D-Dimer (Diane) < 0.27 ug/mlFEU Sodium Level 140 mmol/L (136-145) 140 mmol/L (136-145) Potassium Level 4.1 mmol/L (3.5-5.1) 3.8 mmol/L (3.5-5.1) Chloride Level 103 mmol/L (98-107) 104 mmol/L (98-107) Carbon Dioxide Level 32 mmol/L (21-32) 25 mmol/L (21-32) Anion Gap 5 (6-14) 11 (6-14) Blood Urea Nitrogen 12 mg/dL (8-26) 16 mg/dL (8-26) Creatinine 1.0 mg/dL (0.7-1.3) 1.0 mg/dL (0.7-1.3) Estimated GFR (Cockcroft-Gault) 75.7 75.7 BUN/Creatinine Ratio 12 (6-20) Glucose Level 135 mg/dL (70-99) 194 mg/dL (70-99) Hemoglobin A1c 6.4 % (4.8-5.6) Calcium Level 8.9 mg/dL (8.5-10.1) 8.4 mg/dL (8.5-10.1) Total Bilirubin 0.3 mg/dL (0.2-1.0) Aspartate Amino Transf (AST/SGOT) 11 U/L (15-37) Alanine Aminotransferase (ALT/SGPT) 15 U/L (16-63) Alkaline Phosphatase 82 U/L (46-116) Troponin I Quantitative < 0.017 ng/mL (0.000-0.055) < 0.017 ng/mL (0.000-0.055) < 0.017 ng/mL (0.000-0.055) Total Protein 7.0 g/dL (6.4-8.2) Albumin 3.8 g/dL (3.4-5.0) Albumin/Globulin Ratio 1.2 (1.0-1.7) Triglycerides Level 114 mg/dL (0-150) Cholesterol Level 107 mg/dL (0-200) LDL Cholesterol, Calculated 54 mg/dL (0-100) VLDL Cholesterol, Calculated 23 mg/dL (0-40) Non-HDL Cholesterol Calculated 77 mg/dL (0-129) HDL Cholesterol 30 mg/dL (40-60) Cholesterol/HDL Ratio 3.6 Thyroid Stimulating Hormone (TSH) 2.816 uIU/mL (0.358-3.74) Glucose (Fingerstick) 97 mg/dL (70-99) Test 03/26/20 11:21 03/26/20 16:31 03/26/20 21:23 03/27/20 07:21 Glucose (Fingerstick) 190 mg/dL (70-99) 103 mg/dL (70-99) 152 mg/dL (70-99) 107 mg/dL (70-99) Test 03/27/20 11:07 Glucose (Fingerstick) 117 mg/dL (70-99) Laboratory Tests Test 03/26/20 16:31 03/26/20 21:23 03/27/20 07:21 03/27/20 11:07 Glucose (Fingerstick) 103 mg/dL (70-99) 152 mg/dL (70-99) 107 mg/dL (70-99) 117 mg/dL (70-99) Brief Hospital Course Mr Best is a 64 yo M w/ PMHx DM2, HLD who presented with chest pain. Negative CXR, negative troponin x2. EKG with left anterior fascicular block. Compared to his 2017 EKG this appears unchanged to me. 03/26: His pain improved with GI cocktail. Today still has a little bit of discomfort not reproducible food and breathing does not change it. Kept overnight secondary to complaints of food "sticking", GI consulted. HbA1c returned at 6.4. No CP or SOB. Consults: GI, cardiology Problem list: Chest pain - atypical features, high risk for CAD, however DM2 - sliding scale, A1c HLD HTN Dysphagia [place] 02/16/2017 Lexiscan - 1. No EKG evidence of stress-induced ischemia. 2. Nuclear imaging shows no reversible ischemia. 3. Nuclear imaging shows mild fixed thinning in the inferior lateral region most consistent with a technical artifact. 4. Left ventricular systolic function is normal. There are no regional wall motion abnormalities. Ejection fraction is greater than 70%. 5. Low to moderately low risk nuclear stress test. Plan: Outpatient stress test with cardiology. Has some dyspnea on exertion. EGD after stress test outpatient. Discharge home with Protonix 30 days. Discharge Information Condition at Discharge: Improved Follow Up: Weeks (1) Disposition/Orders: D/C to Home Scheduled Aspirin (Aspirin) 81 Mg Tab.chew, 1 TAB PO DAILY for prophylaxis, #30 Ref 3 (Reported) Entered as Reported by: Alex Mckinney on 03/26/20723 Last Action: New Order on 03/26/20723 by Alex Mckinney Atorvastatin Calcium (Atorvastatin Calcium) 20 Mg Tablet, 1 TAB PO HS, #30 Ref 5 (Reported) Entered as Reported by: CHIQUIS BRAND on 02/15/172010 Lisinopril (Lisinopril) 2.5 Mg Tablet, 1 TAB PO DAILY, #30 Ref 1 Prescribed by: JACK CR on 02/16/17 1521 Metformin Hcl (Metformin Hcl) 1,000 Mg Tablet, 1,000 MG PO BIDWMEALS for dm, (Reported) Entered as Reported by: LAILA TRONCOSO on 02/15/17 1828 Pantoprazole Sodium (Pantoprazole Sodium ) 40 Mg Tablet., 40 MG PO DAILYAC for GERD for 30 Days, #30 Prescribed by: PILY TORIBIO MD on 03/26/20 1105 PILY TORIBIO MD March 27, 2020 12:52
--- NOTE | 2020-03-27 13:46 | NUR ---
pt was discharged home with self care. two scripts were sent electronically to [facility], pantoprazole and metformin. pt is to call fire warden for outpt Echo next week to be done. pt was walked down to the main entrance to be picked up by family member to be taken home, Pihlip Murguia RN
== END 2020-03-27 13:59 | disposition home or self-care (01) | DRG 313 ==
LOC: ER 17:02 → ED HOLD 18:00 → 6 SOUTH 22:30
PROVIDERS: ADMIT Internal Medicine; ATTEND Internal Medicine
DX: R07.89 Other chest pain (principal); E11.9 Type 2 diabetes mellitus without complications; E78.00 Pure hypercholesterolemia, unspecified; E78.5 Hyperlipidemia, unspecified; I10 Essential (primary) hypertension; I44.4 Left anterior fascicular block; K21.9 Gastro-esophageal reflux disease without esophagitis; R13.10 Dysphagia, unspecified; Z82.49 Family history of ischemic heart disease and other diseases of the circulatory system; Z80.9 Family history of malignant neoplasm, unspecified; M19.90 Unspecified osteoarthritis, unspecified site
CPT/HCPCS: 36415; 71045; 80048; 80053; 80061; 82962; 83036; 84443; 84484; 85025; 85379; 85610; 85730; 93005; G0378

== ENCOUNTER → 2020-05-04 | Outpatient (CLI) | payer OTHER ==
[~2020-05-04] MED LIST changes: +ASPI-630 PO; +PANT40TA77 PO; +REGADENOSON 0.4 MG/5 ML DISP.SYRIN. IV ONE
--- NOTE | 2020-05-04 13:26 | RAD ---
MR#: [id number] Date of Study: 05/04/2020 Ordering Physician: JEF DAO, Referring Physician: SOLIS KELLY Tech: RT Albina French) (N) APPROVED REPORT Test Type: Pharmacological Stress Nurse/Tech: FELIPE Jessica Test Indications: chest pain 3-4 weeks in hospital Cardiac History: See Electronic Medical Record Medications: See Electronic Medical Record Medical History: See Electronic Medical Record Resting ECG: SR Resting Heart Rate: 64 bpm Resting Blood Pressure: 120/72mmHg Pretest Chest Pain: No chest pain Nurse/Tech Notes S1S2, lungst CTA, denied CP, SOA, cough. Consent: The procedure was explained to the patient in lay terms. Informed consent was witnessed. Tru eout was entered into [facility]. History and Stress Test performed by RT Albina French) (N) Pharm. Details Pharmacologic stress testing was performed using 0.4mg per 5ml of regadenoson given intravenously ove r 7-10 seconds. Stress Symptoms Pt tolerated the procedure well, only complaint was of having a headache. POST EXERCISE Reason for Termination: Infusion complete Max HR: 91 bpm Max Blood Pressure: 128/61mmHg Blood Pressure response to exercise: Normal blood pressure response during stress. Heart Rate response to exercise: Normal heart rate response to stress Chest Pain: No. Arrhythmia: No. ST Change: No. INTERPRETATION Stress EKG Conclusion: No evidence of stress induced EKG changes. Imaging Protocol IMAGE PROTOCOL: Rest Tc-99m/stress Tc-99m 1 day Rest: Stress: Viability: Radiopharm.Tc99m [id number] Sestamibi Dose10.7mCi 32.3mCi Duration 13min. 13min. Img Date 05/04/2020 05/04/2020 Inj-Img [id number]. 60min. Rest Admin Site:IV - Right HandAdministrator:RT Albina French)(N) Stress Admin Site: IV - Right HandAdministrator: RT Albina French)(N) STRESS DATA End Diast. Vol.104.0mlAv. Heart Rate70.0bpm LVEDV index BSA48.0mlCardiac Output0.0L/min End Syst. Vol.37.0mlCO Index BSA0.0L/min LVESV index BSA17.0mlMyocardial Axrr680.0g Eject. Wreemnqp80.0% Stress Scores Regional WT0.00Summed WT12.00 Regional WM0.00Summed WM4.00 The rest and stress images show normal perfusion, normal contraction and thickening. LV Perf. Quant 17 Seg. SSS4.00 17 Seg. SRS2.00 17 Seg. SDS2.00 Stress Defect Extent (% LAD)2.50Rest Defect Extent (% LAD)0.00Rev. Defect Extent (% LAD)2.50 Stress Defect Extent (% LCX) 30.00Rest Defect Extent (% LCX)35.00Rev. Defect Extent (% LCX)21.30 Stress Defect Extent (% RCA)0.00Rest Defect Extent (% RCA)0.00Rev. Defect Extent (% RCA)0.00 Stress Defect Extent (% DONELL)10.70Rest Defect Extent (% DONELL)6.10Rev. Defect Extent (% DONELL)8.70 Other Information Quality:Good Risk Assessment: Low Risk Conclusion 1. No evidence of EKG changes with stress testing. 2. Normal perfusion at stress/rest. 3. Low risk study. 4. EF > 60%. Signed by : Jef Dao, Electronically Approved : 05/04/2020 13:26:27
== END | disposition home or self-care (01) ==
LOC: NM 07:25
PROVIDERS: ATTEND Internal Medicine Cardiovascular Disease
DX: R07.9 Chest pain, unspecified (principal)
CPT/HCPCS: 78452; 93017; A9500; J2785